=== PATIENT | female | born 1965 | race American Indian/Alaskan Native ===

== ENCOUNTER 2017-01-25 11:22 | Emergency (ER) | payer OTHER, SELFPAY ==
[2017-01-25 12:44] LABS: Mean Corpuscular HGB Conc 29 % (30-34); Platelet Count 328 K/mm3 (140-440); Red Blood Count 3.48 M/mm3 (3.65-5.03)
[2017-01-25 12:47] LABS: Hematocrit 23.4 % (30.3-42.9); Hemoglobin 6.7 gm/dl (10.1-14.3); Mean Corpuscular Hemoglobin 19 pg (28-32); Mean Corpuscular Volume 67 fl (79-97); Red Cell Distribution Width 30.7 % (13.2-15.2)
[2017-01-25 13:03] LABS: Anion Gap 19 mmol/L; BUN/Creatinine Ratio 25.55; Blood Urea Nitrogen 23 mg/dL (7-17); Carbon Dioxide 24 mmol/L (22-30); Chloride 103.2 mmol/L (98-107); Glucose 131 mg/dL (65-100); Potassium 3.5 mmol/L (3.6-5.0); Sodium 143 mmol/L (137-145)
[2017-01-25 13:41] LABS: Anisocytosis 3+; Basophils % (Manual) 0 % (0.0-1.8); Blastocytes % (Manual) 0 %; Eosinophils % (Manual) 0 % (0.0-4.3)
[2017-01-25 13:43] LABS: Hypochromasia 1+; Microcytosis 1+; Polychromasia Few
[2017-01-25 13:44] LABS: Diff Status Complete; Poikilocytosis 1+
[2017-01-25] MEDS ORDERED: NACL 0.9% 500 ML 500 ML IV ONE (14:45)
--- NOTE | 2017-01-25 14:49 | Emergency Department Report ---
ED Shortness of Breath HPI - General Chief Complaint: Dyspnea/Respdistress Stated Complaint: PASSED OUT Time Seen by Provider: 01/25/17 14:37 Source: patient Mode of arrival: Ambulatory Limitations: No Limitations - History of Present Illness Initial Comments: 51 years old female history of chronic vaginal bleeding presented today with shortness of breath has been going on for 4-6 months per patient's get worse last night. Patient had history of fibroid but she stated that her vaginal bleeding is stopped about 6 months ago so she is not actively bleeding now. Denied any abdominal pain, hematochezia or hematuria. Patient stated that she is lightheaded. No chest pain. MD Complaint: shortness of breath -: Gradual, month(s) - Related Data Home Medications Medication Instructions Recorded Confirmed Last Taken Hydrochlorothiazide [HCTZ] 25 mg PO QDAY 01/25/17 01/25/17 Unknown Lisinopril [Zestril TAB] 20 mg PO QDAY 01/25/17 01/25/17 Unknown Previous Rx's Medication Instructions Recorded Last Taken Type Docusate Sodium [Colace] 100 mg PO BID #60 capsule 01/25/17 Unknown Rx Ferrous Sulfate [Feosol 325 MG tab] 325 mg PO QDAY #30 tablet 01/25/17 Unknown Rx Allergies Allergy/AdvReac Type Severity Reaction Status Date / Time No Known Allergies Allergy Unverified 12/11/13 14:24 ED Review of Systems ROS: Stated complaint: PASSED OUT Other details as noted in HPI Comment: All other systems reviewed and negative Constitutional: denies: chills, fever Respiratory: shortness of breath, SOB with exertion. denies: orthopnea Cardiovascular: palpitations. denies: chest pain Gastrointestinal: denies: abdominal pain, nausea, vomiting, diarrhea, constipation, hematemesis, melena, hematochezia Genitourinary: abnormal menses. denies: urgency, dysuria ED Past Medical Hx - Past Medical History Previous Medical History?: Yes Hx Hypertension: Yes Hx Congestive Heart Failure: No Hx Diabetes: No Hx Asthma: No Hx COPD: No Additional medical history: Uterine fibroids. Anemia - Surgical History Past Surgical History?: No - Social History Smoking Status: Never Smoker Substance Use Type: Prescribed - Medications Home Medications: Home Medications Medication Instructions Recorded Confirmed Last Taken Type Docusate Sodium [Colace] 100 mg PO BID #60 capsule 01/25/17 Unknown Rx Ferrous Sulfate [Feosol 325 MG tab] 325 mg PO QDAY #30 tablet 01/25/17 Unknown Rx Hydrochlorothiazide [HCTZ] 25 mg PO QDAY 01/25/17 01/25/17 Unknown History Lisinopril [Zestril TAB] 20 mg PO QDAY 01/25/17 01/25/17 Unknown History ED Physical Exam - General Limitations: No Limitations General appearance: alert, in no apparent distress - Head Head exam: Present: normocephalic - Eye Eye exam: Present: other (pale conjunctiva) - ENT ENT exam: Present: normal exam - Neck Neck exam: Present: normal inspection, full ROM. Absent: meningismus - Respiratory Respiratory exam: Present: normal lung sounds bilaterally. Absent: respiratory distress, wheezes, rales, rhonchi - Cardiovascular Cardiovascular Exam: Present: regular rate, normal rhythm, normal heart sounds - GI/Abdominal GI/Abdominal exam: Present: soft. Absent: tenderness, guarding, rebound, rigid - Extremities Exam Extremities exam: Present: normal inspection, normal capillary refill - Back Exam Back exam: Absent: CVA tenderness (R), CVA tenderness (L) - Neurological Exam Neurological exam: Present: alert, oriented X3, CN II-XII intact, normal gait - Skin Skin exam: Present: warm, intact, normal color ED Course Vital Signs 01/25/17 01/25/17 01/25/17 11:42 14:47 15:00 Temperature 98.6 F Pulse Rate 102 H Respiratory 18 Rate Blood Pressure 238/131 188/104 Blood Pressure [Right] O2 Sat by Pulse 99 100 97 Oximetry 01/25/17 01/25/17 01/25/17 15:05 15:30 16:59 Temperature 98.2 F Pulse Rate 91 H Respiratory 18 18 Rate Blood Pressure 176/95 188/112 Blood Pressure [Right] O2 Sat by Pulse 96 99 Oximetry 01/25/17 01/25/17 17:40 18:20 Temperature 98.0 F 97.6 F Pulse Rate 18 L 84 Respiratory 18 18 Rate Blood Pressure Blood Pressure 204/115 201/106 [Right] O2 Sat by Pulse 100 99 Oximetry - Reevaluation(s) Reevaluation #1: 01/25/17 19:04 Patient received 1 units of PRBC she stated that she is feeling much better her hemoglobin now is 7.9. Patient will be discharged home on iron sulfate pill and advised to follow-up with her live in housekeeper nanny. ED Medical Decision Making - Lab Data Result diagrams: 01/25/17 18:27 01/25/17 12:31 Critical care attestation.: If time is entered above; I have spent that time in minutes in the direct care of this critically ill patient, excluding procedure time. ED Disposition Clinical Impression: Shortness of breath, Anemia due to blood loss Disposition: TO HOME OR SELFCARE Is pt being admited?: No Condition: Stable Instructions: Iron Deficiency Anemia (ED) Prescriptions: Docusate Sodium [Colace] 100 mg PO BID #60 capsule Ferrous Sulfate [Feosol 325 MG tab] 325 mg PO QDAY #30 tablet Referrals: PRIMARY CARE, [Primary Care Provider] - 3-5 Days
[2017-01-25] MEDS ORDERED: CATAPRES PO ONE ×2 (15:53→19:42)
[2017-01-25] MEDS ORDERED: MOTRIN PO ONE (18:45)
[2017-01-25 18:59] LABS: Mean Corpuscular HGB Conc 30 % (30-34); Platelet Count 333 K/mm3 (140-440); Red Blood Count 3.93 M/mm3 (3.65-5.03)
[2017-01-25 19:00] LABS: Hematocrit 26.9 % (30.3-42.9); Hemoglobin 7.9 gm/dl (10.1-14.3); Mean Corpuscular Hemoglobin 20 pg (28-32); Mean Corpuscular Volume 68 fl (79-97); Red Cell Distribution Width 30.7 % (13.2-15.2)
[2017-01-25 19:44] VITALS: BP 180/110
[2017-01-25 19:54] LABS: Anisocytosis 3+; Basophils % (Manual) 0 % (0.0-1.8); Blastocytes % (Manual) 0 %; Hypochromasia 2+; Microcytosis 1+; Poikilocytosis 1+
[2017-01-25 19:55] LABS: Diff Status Complete; Large Platelets Few; Platelet Estimate Consistent w Auto; Polychromasia Few
--- NOTE | 2017-01-27 07:21 | XRay Report ---
CHEST 2 VIEWS INDICATION: Shortness of breath. COMPARISON: 05/04/2014 FINDINGS: PA and lateral chest radiographs again demonstrate mild to moderate cardiomegaly, slight bronchovascular prominence centrally and minimal fluid or thickening along the fissures. No significant pleural effusions or CHF. Mild multilevel thoracic spondylosis. CONCLUSION: Cardiomegaly again noted without acute chest process, as described. Thank you for the opportunity to participate in this patient's care.
== END 2017-01-25 19:55 | disposition home or self-care (01) ==
LOC: ED 11:22
DX: R06.02 Shortness of breath (principal); D50.0 Iron deficiency anemia secondary to blood loss (chronic); I10 Essential (primary) hypertension
CPT/HCPCS: 36415; 71020; 80048; 84484; 85007; 85025; 86850; 86900; 86901; 86920; 93005; 93010; 96360; 96361; 99284; J7040; P9016

== ENCOUNTER 2021-04-18 18:47 | Inpatient (IN) | payer SELFPAY ==
--- NOTE | 2021-04-18 22:29 | Emergency Department Report ---
HPI - General Chief Complaint: Dyspnea/Respdistress Time Seen by Provider: 04/18/21 22:19 - HPI HPI: 55-year-old -[place] female presents to the emergency department with a complaint of a 2 to 3-week history of shortness of breath that worsens with exertion, and "I have a bunch of fluid on me." The patient complains of fluid retention to the legs and abdomen. She had a history of hypertension. She follows with [facility]. She denies any fever, chest pain, nausea, vomiting or diaphoresis. She has not taken anything for symptoms prior to presentation. She denies any tobacco or illicit drug use. No recent travel or sick contacts at home. ED Past Medical Hx - Past Medical History Previous Medical History?: Yes Hx Hypertension: Yes Hx Congestive Heart Failure: No Hx Diabetes: No Hx Asthma: No Hx COPD: No Additional medical history: Uterine fibroids. Anemia - Surgical History Past Surgical History?: No - Social History Smoking Status: Never Smoker Substance Use Type: Prescribed - Medications Home Medications: Home Medications Medication Instructions Recorded Confirmed Last Taken Type Docusate Sodium [Colace] 100 mg PO BID #60 capsule 01/25/17 Unknown Rx Ferrous Sulfate [Feosol 325 MG tab] 325 mg PO QDAY #30 tablet 01/25/17 Unknown Rx hydroCHLOROthiazide [HCTZ] 25 mg PO QDAY 01/25/17 01/25/17 Unknown History lisinopriL [Zestril TAB] 20 mg PO QDAY 01/25/17 01/25/17 Unknown History ED Review of Systems ROS: Stated complaint: FLUID ON ME Other details as noted in HPI Comment: All other systems reviewed and negative Constitutional: denies: chills, fever Eyes: denies: eye pain, vision change ENT: denies: ear pain, throat pain Respiratory: cough, shortness of breath, SOB with exertion Cardiovascular: edema. denies: chest pain Gastrointestinal: denies: abdominal pain, vomiting Genitourinary: denies: dysuria, discharge Musculoskeletal: denies: back pain, arthralgia Skin: denies: rash, lesions Neurological: denies: headache, numbness Physical Exam - Physical Exam Vital Signs: Vital Signs 04/18/21 18:54 Temperature 98.0 F Pulse Rate 139 H Respiratory 18 Rate Blood Pressure 131/82 O2 Sat by Pulse 100 Oximetry Physical Exam: GENERAL: The patient is well-developed well-nourished. HENT: Normocephalic. Atraumatic. Patient has moist mucous membranes. EYES: Extraocular motions are intact. NECK: Supple. Trachea is midline. CHEST/LUNGS: Coarse breath sounds at the chest. There is some tachypnea but no accessory muscle use. HEART/CARDIOVASCULAR: Irregular rhythm. There is moderate tachycardia. ABDOMEN: Abdomen is soft, nontender. Patient has normal bowel sounds. Morbidly obese habitus. SKIN: Skin is warm and dry. 1-2+ pitting edema along the bilateral lower extremities up into the thigh, and nonpitting edema to the lower abdomen. NEURO: The patient is awake, alert, and oriented. The patient is cooperative. The patient has no focal neurologic deficits. Normal speech. MUSCULOSKELETAL: There is no tenderness or deformity. There is no limitation range of motion. ED Course Vital Signs 04/18/21 18:54 Temperature 98.0 F Pulse Rate 139 H Respiratory 18 Rate Blood Pressure 131/82 O2 Sat by Pulse 100 Oximetry - Consultations Consultation #1: 04/19/21 00:35 I spoke with the programming instructor scientific publications editor, Dr Carlos, who listened to the case presentation and recommended amiodarone drip without bolus to try and provide rate control for the A. fib with RVR given the patient's potential diagnosis of CHF and her current blood pressure. They will consult on the patient. ED Medical Decision Making - Lab Data Result diagrams: 04/18/21 22:26 04/18/21 22:26 Lab Results 04/18/21 04/18/21 04/18/21 Range/Units 22:26 22:26 22:26 WBC 7.5 (4.5-11.0) K/mm3 RBC 3.69 (3.65-5.03) M/mm3 Hgb 7.4 L (10.1-14.3) gm/dl Hct 26.9 L (30.3-42.9) % MCV 73 L (79-97) fl MCH 20 L (28-32) pg MCHC 28 L (30-34) % RDW 22.4 H (13.2-15.2) % Plt Count 350 (140-440) K/mm3 Lymph % (Auto) 23.4 (13.4-35.0) % Wharton % (Auto) 13.2 H (0.0-7.3) % Eos % (Auto) 0.3 (0.0-4.3) % Baso % (Auto) 0.7 (0.0-1.8) % Lymph # (Auto) 1.8 (1.2-5.4) K/mm3 Wharton # (Auto) 1.0 H (0.0-0.8) K/mm3 Eos # (Auto) 0.0 (0.0-0.4) K/mm3 Baso # (Auto) 0.1 (0.0-0.1) K/mm3 Seg Neutrophils % 62.4 (40.0-70.0) % Seg Neutrophils # 4.7 (1.8-7.7) K/mm3 PT 16.6 H (12.2-14.9) Sec. INR 1.21 H (0.87-1.13) APTT 30.3 (24.2-36.6) Sec. Sodium 142 (137-145) mmol/L Potassium 3.6 (3.6-5.0) mmol/L Chloride 102.2 (98-107) mmol/L Carbon Dioxide 24 (22-30) mmol/L Anion Gap 19 mmol/L BUN 40 H (7-17) mg/dL Creatinine 1.4 H (0.6-1.2) mg/dL Estimated GFR 48 ml/min BUN/Creatinine Ratio 29 % Glucose 190 H (65-100) mg/dL Calcium 9.0 (8.4-10.2) mg/dL Total Bilirubin 3.90 H (0.1-1.2) mg/dL AST 35 (5-40) units/L ALT 47 (7-56) units/L Alkaline Phosphatase 134 H (35-129) units/L Troponin T 0.043 H (0.00-0.029) ng/mL NT-Pro-B Natriuret Pep 2124 H (0-900) pg/mL Total Protein 8.0 (6.3-8.2) g/dL Albumin 3.4 L (3.9-5) g/dL Albumin/Globulin Ratio 0.7 % TSH (0.270-4.200) mlU/mL 04/18/21 Range/Units 22:26 WBC (4.5-11.0) K/mm3 RBC (3.65-5.03) M/mm3 Hgb (10.1-14.3) gm/dl Hct (30.3-42.9) % MCV (79-97) fl MCH (28-32) pg MCHC (30-34) % RDW (13.2-15.2) % Plt Count (140-440) K/mm3 Lymph % (Auto) (13.4-35.0) % Wharton % (Auto) (0.0-7.3) % Eos % (Auto) (0.0-4.3) % Baso % (Auto) (0.0-1.8) % Lymph # (Auto) (1.2-5.4) K/mm3 Wharton # (Auto) (0.0-0.8) K/mm3 Eos # (Auto) (0.0-0.4) K/mm3 Baso # (Auto) (0.0-0.1) K/mm3 Seg Neutrophils % (40.0-70.0) % Seg Neutrophils # (1.8-7.7) K/mm3 PT (12.2-14.9) Sec. INR (0.87-1.13) APTT (24.2-36.6) Sec. Sodium (137-145) mmol/L Potassium (3.6-5.0) mmol/L Chloride (98-107) mmol/L Carbon Dioxide (22-30) mmol/L Anion Gap mmol/L BUN (7-17) mg/dL Creatinine (0.6-1.2) mg/dL Estimated GFR ml/min BUN/Creatinine Ratio % Glucose (65-100) mg/dL Calcium (8.4-10.2) mg/dL Total Bilirubin (0.1-1.2) mg/dL AST (5-40) units/L ALT (7-56) units/L Alkaline Phosphatase (35-129) units/L Troponin T (0.00-0.029) ng/mL NT-Pro-B Natriuret Pep (0-900) pg/mL Total Protein (6.3-8.2) g/dL Albumin (3.9-5) g/dL Albumin/Globulin Ratio % TSH 2.420 (0.270-4.200) mlU/mL - EKG Data -: EKG Interpreted by Me EKG shows normal: axis (Left axis deviation), intervals (Prolonged QTC), QRS complexes, ST-T waves Rate: tachycardia (145 bpm) - EKG Data When compared to previous EKG there are: changes noted (Previous EKG showed sinus tachycardia on 01/25/2017) Interpretation: other (Atrial fibrillation with RVR at 145 bpm, left axis deviation, prolonged QTC. No ST elevation OH) - Radiology Data Radiology results: image reviewed interpreted by me: Chest x-ray shows moderate to severe cardiomegaly and pulmonary vascular congestion. No obvious pneumonia. No pneumothorax. No widened mediastinum. - Medical Decision Making This patient presents to the emergency department with a 2 to 3-week history of shortness of breath that worsens with exertion, as well as swelling to the bilateral lower extremities and up into the abdomen. On examination the patient has moderate tachycardia and heart sounds are irregular. EKG confirms atrial fibrillation with RVR that appears to be new onset. No morphology consistent with ST elevation myocardial infarction. Chest x-ray shows moderate to severe cardiomegaly with some pulmonary vascular congestion possibly showing early CHF. Patient's labs are remarkable for hemoglobin of 7.4, acute kidney injury with a GFR of 48, proBNP of about 2200, elevated troponin level of 0.04. Patient does have a history of anemia but previously required transfusions due to uterine fibroids and dysfunctional uterine bleeding. The patient says that she no longer has these issues, and denies any current bleeding from anywhere. Patient was given a dose of Cardizem without much improvement in the tachycardia and no cardioversion. At this point the patient's blood pressure was about 100/60. Cardiology was contacted and consulted and recommended amiodarone drip without bolus. Patient has been started on a heparin drip. Patient will be admitted to the hospital for further evaluation and treatment and was accepted for admission by the hospitalist, Dr. Cruz. Critical Care Time: Yes Critical care time in (mins) excluding proc time.: 35 Critical care attestation.: If time is entered above; I have spent that time in minutes in the direct care of this critically ill patient, excluding procedure time. Critical care time spent on this patient in doing her initial evaluation, multiple reevaluations, ordering and interpretation of labs and imaging, discussion with cardiology, IV Cardizem and then amiodarone drip for rate control of A. fib with RVR, IV heparin for new onset A. fib, and multiple discussions with the patient. Critical Care Time: 35 minutes ED Disposition Clinical Impression: Atrial fibrillation with RVR, New onset atrial fibrillation, ARNULFO (acute kidney injury), Elevated troponin CHF (congestive heart failure) Qualifiers: Heart failure type: unspecified Heart failure chronicity: acute Qualified Code(s): I50.9 - Heart failure, unspecified Anemia Qualifiers: Anemia type: unspecified type Qualified Code(s): D64.9 - Anemia, unspecified Disposition: 09 ADMITTED INPATIENT Is pt being admited?: Yes Condition: Serious Referrals: PRIMARY CAREMD [Primary Care Provider] - 3-5 Days Time of Disposition: 23:57
--- NOTE | 2021-04-18 22:59 | XRay Report ---
XR chest routine 2V INDICATION / CLINICAL INFORMATION: SOB. COMPARISON: None available. FINDINGS: SUPPORT DEVICES: None. HEART /PULMONARY VASCULATURE: Cardiac silhouette is enlarged. Pulmonary vasculature is upper normal. LUNGS / PLEURA: No significant pulmonary or pleural abnormality. No pneumothorax. ADDITIONAL FINDINGS: No significant additional findings. IMPRESSION: Cardiomegaly with borderline pulmonary vasculature congestion, may reflect mild CHF. Signer Name: Caden Torres MD Signed: 04/18/2021 10:54 PM Workstation Name: [id number]
[2021-04-18 23:10] LABS: Basophils # (Auto) 0.1 K/mm3 (0.0-0.1); Basophils % (Auto) 0.7 % (0.0-1.8); Eosinophils % (Auto) 0.3 % (0.0-4.3); Lymphocytes # (Auto) 1.8 K/mm3 (1.2-5.4); Lymphocytes % (Auto) 23.4 % (13.4-35.0); Mean Corpuscular HGB Conc 28 % (30-34); Mean Corpuscular Volume 73 fl (79-97); Monocytes % (Auto) 13.2 % (0.0-7.3); Platelet Count 350 K/mm3 (140-440); Red Blood Count 3.69 M/mm3 (3.65-5.03)
[2021-04-18] MEDS ORDERED: dilTIAZem 25 MG/5 ML INJ IV ONE (23:17)
[2021-04-18 23:21] LABS: INR 1.21 (0.87-1.13)
[2021-04-18 23:22] LABS: Partial Thromboplastin Time 30.3 Sec. (24.2-36.6)
[2021-04-18 23:25] LABS: Albumin 3.4 g/dL (3.9-5)
[2021-04-18 23:28] LABS: Hematocrit 26.9 % (30.3-42.9); Hemoglobin 7.4 gm/dl (10.1-14.3); Red Cell Distribution Width 22.4 % (13.2-15.2)
[2021-04-18] MEDS ORDERED: AMIODARONE 900 MG in DEXTROSE 5% IN WATER 482 ML IV SCH (23:45)
[2021-04-18] MEDS ORDERED: HEPARIN 10,000 UNITS/10 ML VIAL IV ONE (23:51)
[2021-04-19] MEDS: HEPARIN/ 0.45% NACL DRIP 25,000 UNIT/500 ML BAG IV SCH (00:19)
[2021-04-19] MEDS ORDERED: ACETAMINOPHEN 325 MG TAB PO ONE (00:22)
[2021-04-19 01:08] LABS: Chol/HDL Ratio 3.04 %
[2021-04-19] MEDS ORDERED: MORPHINE 2 MG/1 ML INJ IV PRN ×2 (01:13)
[2021-04-19] MEDS ORDERED: MORPHINE 4 MG/1 ML INJ IV PRN (01:13)
[2021-04-19] MEDS ORDERED: MAGNESIUM HYDROXIDE (MOM) ORAL LIQD UDC PO PRN (01:13)
[2021-04-19] MEDS ORDERED: NITROGLYCERIN 0.4 MG TAB SUBL SL PRN (01:13)
--- NOTE | 2021-04-19 01:24 | History and Physical Report ---
History of Present Illness Date of examination: 04/19/21 Date of admission: 04/19/2021 Chief complaint: Shortness of breath Lower extremity swelling History of present illness: 55-year-old -Iranian female with known history of hypertension presenting to the emergency room today complaining of shortness of breath and progressive swelling of her lower extremities which has been ongoing for the past 2 to 3 weeks. Shortness of breath is said to be worse on exertion. She denies any chest pain, no nausea or vomiting and no abdominal pain. Patient denies any fever or chills, denies any headache or dizziness denies any diaphoresis. Patient denies any sick contacts and no recent travel. Denies any contact with anyone with COVID-19. Patient has been fully vaccinated against COVID-19. Upon arrival in the emergency room today patient was in A. fib with RVR. Work-up in the emergency room, significant findings were that of a hemoglobin of 7.4, elevated BUN of 40 and creatinine of 1.4, troponin of 0.043, BNP of 2124. Chest x-ray reveals cardiomegaly with borderline pulmonary vascular congestion which may reflect mild CHF. Fax Machine Repairer on-call was consulted by the ER physician and the recommendation was to place patient on amiodarone drip and heparin. Past History Past Medical History: anemia, hypertension, other (Uterine fibroids) Past Surgical History: No surgical history Social history: no significant social history Family history: no significant family history Medications and Allergies Allergies Allergy/AdvReac Type Severity Reaction Status Date / Time No Known Allergies Allergy Unverified 12/11/13 14:24 Home Medications Medication Instructions Recorded Confirmed Last Taken Type hydroCHLOROthiazide [HCTZ] 25 mg PO QDAY 01/25/17 04/19/21 Unknown History lisinopriL [Zestril TAB] 20 mg PO QDAY 01/25/17 04/19/21 Unknown History Active Meds: Active Medications Amiodarone HCl 900 mg/ (Dextrose) 500 mls @ 33.333 mls/hr IV DIRECT SHELLY; Protocol Last Admin: 04/19/21 00:34 Dose: 1 mg/min, 33.333 mls/hr Documented by: Heparin Sodium/Sodium Chloride (Heparin/ 0.45% Nacl-25,000 Unit/500 Ml) 25,000 unit in 500 mls @ 30 mls/hr IV TITR SHELLY; Protocol Last Admin: 04/19/21 00:19 Dose: 1,500 units/hr, 30 mls/hr Documented by: Review of Systems Constitutional: no fever, no chills Ears, nose, mouth and throat: no nasal congestion, no sore throat Cardiovascular: palpitations, edema, dyspnea on exertion, no chest pain Respiratory: cough, shortness of breath, no wheezing Gastrointestinal: no abdominal pain, no nausea, no vomiting, no diarrhea Genitourinary Female: no pelvic pain, no flank pain, no dysuria, no hematuria Musculoskeletal: no neck pain, no low back pain Integumentary: no rash, no pruritis Neurological: no headaches, no confusion Psychiatric: no anxiety, no depression Endocrine: no polyphagia, no polydipsia, no polyuria, no nocturia Exam - Constitutional Vitals: Temp Pulse Resp BP Pulse Ox 98.0 F 120 H 16 104/77 99 04/18/21 18:54 04/18/21 23:45 04/18/21 23:45 04/18/21 23:45 04/18/21 23:45 General appearance: Present: no acute distress, well-nourished, other (Mild pallor) - EENT Eyes: Present: PERRL, EOM intact. Absent: scleral icterus ENT: hearing intact, clear oral mucosa, dentition normal - Neck Neck: Present: supple, normal ROM - Respiratory Respiratory effort: normal Respiratory: bilateral: CTA - Cardiovascular Rhythm: irregularly irregular Heart Sounds: Present: S1 & S2. Absent: gallop, systolic murmur, diastolic mur mur, rub, click - Extremities Extremities: no ischemia, pulses intact, pulses symmetrical, normal temperature, normal color, Full ROM Extremity abnormal: edema (2-3+ bilateral lower extremity pitting edema) Peripheral Pulses: within normal limits - Abdominal General gastrointestinal: Present: soft, non-tender, non-distended, normal bowel sounds. Absent: mass - Integumentary Integumentary: Present: clear, warm, dry, normal turgor. Absent: rash - Musculoskeletal Musculoskeletal: strength equal bilaterally - Psychiatric Psychiatric: appropriate mood/affect, intact judgment & insight, memory intact, cooperative - Neurologic Neurologic: CNII-XII intact, no focal deficits, moves all extremities HEART Score - HEART Score Troponin: Troponin T 0.043 ng/mL (0.00-0.029) H 04/18/21 22:26 Results - Labs CBC & Chem 7: 04/18/21 22:26 04/18/21 22:26 Labs: Abnormal lab results 04/18/21 04/18/21 04/18/21 Range/Units 22:26 22:26 22:26 Hgb 7.4 L (10.1-14.3) gm/dl Hct 26.9 L (30.3-42.9) % MCV 73 L (79-97) fl MCH 20 L (28-32) pg MCHC 28 L (30-34) % RDW 22.4 H (13.2-15.2) % Tate % (Auto) 13.2 H (0.0-7.3) % Tate # (Auto) 1.0 H (0.0-0.8) K/mm3 PT 16.6 H (12.2-14.9) Sec. INR 1.21 H (0.87-1.13) BUN 40 H (7-17) mg/dL Creatinine 1.4 H (0.6-1.2) mg/dL Glucose 190 H (65-100) mg/dL Total Bilirubin 3.90 H (0.1-1.2) mg/dL Alkaline Phosphatase 134 H (35-129) units/L Troponin T 0.043 H (0.00-0.029) ng/mL NT-Pro-B Natriuret Pep 2124 H (0-900) pg/mL Albumin 3.4 L (3.9-5) g/dL LDL Cholesterol Direct 42 L (50-130) mg/dL HDL Cholesterol 25 L (40-59) mg/dL Assessment and Plan - Patient Problems (1) Atrial fibrillation with RVR Current Visit: Yes Status: Acute Plan to address problem: Patient admitted and placed in the intermediate care unit. We will monitor EKG. We will schedule patient for echocardiogram. Consult placed to cardiology for further evaluation and recommendations. Meanwhile patient will be continued on IV amiodarone and heparin drip for ant icoagulation. (2) CHF (congestive heart failure) Current Visit: Yes Status: Acute Qualifiers: Heart failure type: unspecified Heart failure chronicity: acute Qualified Code(s): I50.9 - Heart failure, unspecified Plan to address problem: Patient admitted and placed on diuretics. We will monitor inputs and outputs and also monitor daily weights. Will await echocardiogram. Echocardiogram done in 2013 showed an ejection fraction of 45 to 50%. (3) ARNULFO (acute kidney injury) Current Visit: Yes Status: Acute Plan to address problem: Consult placed to nephrology for evaluation and recommendations. (4) Anemia Current Visit: Yes Status: Acute Qualifiers: Anemia type: unspecified type Qualified Code(s): D64.9 - Anemia, unspecified Plan to address problem: This appears chronic. We will monitor CBC. (5) Elevated troponin Current Visit: Yes Status: Acute Plan to address problem: Patient has denied any chest pain. Will trend cardiac enzymes. Will await further recommendations from cardiology. (6) HTN (hypertension), benign Current Visit: No Status: Acute Plan to address problem: We will resume routine home medications once reconciled. Monitor vital signs closely. (7) DVT prophylaxis Current Visit: No Status: Acute Plan to address problem: Patient currently on anticoagulation with heparin. (8) Full code status Current Visit: Yes Status: Acute Plan to address problem: Patient is full code.
[2021-04-19] MEDS: FUROSEMIDE 40 MG/4 ML INJ IV SCH ×2 (06:19→19:35)
[2021-04-19] MEDS ORDERED: HEPARIN 10,000 UNITS/10 ML VIAL IV PRN (07:13)
[2021-04-19 12:49] LABS: Mean Corpuscular HGB Conc 27 % (30-34); Mean Corpuscular Volume 74 fl (79-97); Platelet Count 317 K/mm3 (140-440); Red Blood Count 3.76 M/mm3 (3.65-5.03)
[2021-04-19 12:52] LABS: Hematocrit 27.8 % (30.3-42.9); Hemoglobin 7.6 gm/dl (10.1-14.3); Red Cell Distribution Width 22.2 % (13.2-15.2)
[2021-04-19 13:33] LABS: Calcium 9.1 mg/dL (8.4-10.2)
[2021-04-19] MEDS: ACETAMINOPHEN 325 MG TAB PO PRN (13:59)
--- NOTE | 2021-04-19 14:52 | Consultation ---
History of Present Illness Consult date: 04/19/21 Consult reason: atrial fibrillation History of present illness: The patient is a 55-year-old woman with severe obesity and hypertension who receives her usual care at [facility]. She presents to the hospital with 3 weeks of shortness of breath and edema. On her presentation here, ECG showed atrial fibrillation with a rapid ventricular rate in the 130s. Cardiology consultation was requested for further assessment. Patient has no prior history of atrial fibrillation, states that she has no prior cardiac history and has never been to see a retort feeder ground bone. Her last visit to her primary care doctors at [facility] was 6 months ago. She has never been given a history of congestive heart failure left ventricular dysfunction. Echocardiogram done at the bedside in the emergency room shows a severe four- chamber dilated cardiomyopathy with left ventricular ejection fraction less than 15 to 20%. There are moderate regurgitant lesions of both mitral and tricuspid valves. Past History Past Medical History: anemia, hypertension, other (Uterine fibroids) Past Surgical History: No surgical history Social history: no significant social history Family history: no significant family history Medications and Allergies Allergies Allergy/AdvReac Type Severity Reaction Status Date / Time No Known Allergies Allergy Unverified 12/11/13 14:24 Home Medications Medication Instructions Recorded Confirmed Last Taken Type hydroCHLOROthiazide [HCTZ] 25 mg PO QDAY 01/25/17 04/19/21 Unknown History lisinopriL [Zestril TAB] 20 mg PO QDAY 01/25/17 04/19/21 Unknown History Active Meds: Active Medications Acetaminophen (Acetaminophen 325 Mg Tab) 650 mg PO Q6H PRN PRN Reason: Pain MILD(1-3)/Fever >100.5/WALTER Last Admin: 04/19/21 13:59 Dose: 650 mg Documented by: Furosemide (Furosemide 40 Mg/4 Ml Inj) 40 mg IV BID@0600,1800 SHELLY Last Admin: 04/19/21 06:19 Dose: 40 mg Documented by: Heparin Sodium (Porcine) (Heparin 10,000 Units/10 Ml Vial) 4,500 unit 40 unit/kg (4500 unit) IV Q6H PRN PRN Reason: Anti-Xa Assay < 0.1 units/ml Amiodarone HCl 900 mg/ (Dextrose) 500 mls @ 33.333 mls/hr IV DIRECT SHELLY; Protocol Last Titration: 04/19/21 07:39 Dose: 0.5 mg/min, 16.66 mls/hr Documented by: Heparin Sodium/Sodium Chloride (Heparin/ 0.45% Nacl-25,000 Unit/500 Ml) 25,000 unit in 500 mls @ 30 mls/hr IV TITR SHELLY; Protocol Last Admin: 04/19/21 00:19 Dose: 1,500 units/hr, 30 mls/hr Documented by: Magnesium Hydroxide (Magnesium Hydroxide (Mom) Oral Liqd Udc) 30 ml PO Q4H PRN PRN Reason: Constipation Morphine Sulfate (Morphine 2 Mg/1 Ml Inj) 2 mg IV Q4H PRN PRN Reason: Pain, Moderate (4-6) Morphine Sulfate (Morphine 4 Mg/1 Ml Inj) 4 mg IV Q4H PRN PRN Reason: Pain , Severe (7-10) Morphine Sulfate (Morphine 2 Mg/1 Ml Inj) 2 mg IV Q5MIN PRN PRN Reason: Chest Pain unrelieved by NTG Nitroglycerin (Nitroglycerin 0.4 Mg Tab Subl) 0.4 mg SL .Q5MIN PRN PRN Reason: Chest Pain Sodium Chloride (Sodium Chloride 0.9% 10 Ml Flush Syringe) 10 ml IV BID [facility] Last Admin: 04/19/21 09:52 Dose: 10 ml Documented by: Sodium Chloride (Sodium Chloride 0.9% 10 Ml Flush Syringe) 10 ml IV PRN PRN PRN Reason: LINE FLUSH Review of Systems Cardiovascular: orthopnea, palpitations, rapid/irregular heart beat, edema, shortness of breath, no chest pain, no syncope, no lightheadedness Physical Examination Vital Signs Temp Pulse Resp BP Pulse Ox 98.0 F 139 H 18 131/82 100 04/18/21 18:54 04/18/21 18:54 04/18/21 18:54 04/18/21 18:54 04/18/21 18:54 General appearance: mild distress HEENT: Positive: PERRL Neck: Positive: neck supple Cardiac: Positive: irregularly irregular Lungs: Positive: Decreased Breath Sounds Neuro: Positive: Grossly Intact Abdomen: Positive: Soft Female genitourinary: deferred Skin: Positive: Clear Extremities: Present: +1 Edema Results 04/19/21 12:02 04/19/21 12:02 Cardiac Enzymes 04/18/21 Range/Units 22:26 AST 35 (5-40) units/L Coagulation 04/18/21 Range/Units 22:26 PT 16.6 H (12.2-14.9) Sec. INR 1.21 H (0.87-1.13) APTT 30.3 (24.2-36.6) Sec. Lipids 04/18/21 Range/Units 22:26 Triglycerides 76 (2-149) mg/dL Cholesterol 76 (50-199) mg/dL HDL Cholesterol 25 L (40-59) mg/dL Cholesterol/HDL Ratio 3.04 % CBC 04/18/21 04/19/21 Range/Units 22:26 12:02 WBC 7.5 12.6 H (4.5-11.0) K/mm3 RBC 3.69 3.76 (3.65-5.03) M/mm3 Hgb 7.4 L 7.6 L (10.1-14.3) gm/dl Hct 26.9 L 27.8 L (30.3-42.9) % Plt Count 350 317 (140-440) K/mm3 Lymph # (Auto) 1.8 (1.2-5.4) K/mm3 [place] # (Auto) 1.0 H (0.0-0.8) K/mm3 Eos # (Auto) 0.0 (0.0-0.4) K/mm3 Baso # (Auto) 0.1 (0.0-0.1) K/mm3 Comprehensive Metabolic Panel 04/18/21 04/19/21 Range/Units 22:26 12:02 Sodium 142 139 (137-145) mmol/L Potassium 3.6 3.8 (3.6-5.0) mmol/L Chloride 102.2 98.8 (98-107) mmol/L Carbon Dioxide 24 20 L (22-30) mmol/L BUN 40 H 46 H (7-17) mg/dL Creatinine 1.4 H 1.6 H (0.6-1.2) mg/dL Glucose 190 H 117 H (65-100) mg/dL Calcium 9.0 9.1 (8.4-10.2) mg/dL AST 35 (5-40) units/L ALT 47 (7-56) units/L Alkaline Phosphatase 134 H (35-129) units/L Total Protein 8.0 (6.3-8.2) g/dL Albumin 3.4 L (3.9-5) g/dL EKG interpretations - Telemetry EKG Rhythm: Atrial Fibrillation Assessment and Plan - Patient Problems (1) CHF (congestive heart failure) Current Visit: Yes Status: Acute Qualifiers: Heart failure type: unspecified Heart failure chronicity: acute Qualified Code(s): I50.9 - Heart failure, unspecified Plan to address problem: Patient presents with 3 weeks of shortness of breath and edema. Clinical evidence of heart failure. Echocardiogram shows a severe four-chamber dilated cardiomyopathy, of uncertain chronicity. Patient reports no prior cardiac history, follows up routinely at [facility]. We will start guideline directed medical therapy including optimal diuretics. Further evaluation and management will depend on clinical course. (2) Atrial fibrillation with RVR Current Visit: Yes Status: Acute Plan to address problem: Atrial fibrillation of undetermined chronicity. Atrial fibrillation is present in the setting of a four-chamber dilated cardiomyopathy. In addition to guidel ine directed medical therapy, patient will be placed on rate control therapy, and if tolerated will be a candidate for long-term oral anticoagulation. It will be noted that she has a history of chronic anemia which may attenuate her candidacy for long-term oral anticoagulation.
--- NOTE | 2021-04-19 17:32 | Event Note ---
Date: 04/19/21 The patient was seen and evaluated, and she was found to be hemodynamically stable. The patient was diagnosed with acute systolic heart failure (new diagnosis) via a bedside TTE. The patient will continue medical management with IV diuresis. Cardiology was consulted; appreciate recommendations.
[2021-04-20] MEDS ORDERED: AMIODARONE 900 MG in DEXTROSE 5% IN WATER 482 ML IV SCH (01:40)
[2021-04-20 05:20] LABS: Basophils # (Auto) 0.1 K/mm3 (0.0-0.1); Basophils % (Auto) 0.6 % (0.0-1.8); Eosinophils # (Auto) 0.1 K/mm3 (0.0-0.4); Eosinophils % (Auto) 0.4 % (0.0-4.3); Mean Corpuscular HGB Conc 28 % (30-34); Mean Corpuscular Volume 73 fl (79-97); Monocytes # (Auto) 1.9 K/mm3 (0.0-0.8); Monocytes % (Auto) 15.6 % (0.0-7.3); Platelet Count 307 K/mm3 (140-440); Red Blood Count 3.44 M/mm3 (3.65-5.03)
[2021-04-20 05:24] LABS: Hematocrit 25.1 % (30.3-42.9); Hemoglobin 7.1 gm/dl (10.1-14.3); Red Cell Distribution Width 21.8 % (13.2-15.2)
[2021-04-20] MEDS: FUROSEMIDE 40 MG/4 ML INJ IV SCH ×2 (06:14→17:34)
[2021-04-20] MEDS: HEPARIN/ 0.45% NACL DRIP 25,000 UNIT/500 ML BAG IV SCH (10:47)
--- NOTE | 2021-04-20 12:58 | Progress Note ---
Assessment and Plan Acute systolic heart failure, uncertain chronicity Echocardiogram shows a severe four-chamber dilated cardiomyopathy, EF 15-20% Atrial fibrillation of undetermined chronicity on IV amiodarone on IV heparin gtt normal TSH of 2.4 Hypertension Obesity Anemia Subjective Date of service: 04/20/21 Objective Vital Signs Temp Pulse Resp BP BP Pulse Ox 04/20/21 12:20 131/103 98 04/20/21 12:10 131/103 99 04/20/21 12:00 98.6 F 130 H 131/103 98 04/20/21 11:50 114/81 99 04/20/21 11:40 126 H 18 114/81 99 04/20/21 11:30 120 H 22 125/66 04/20/21 11:20 131 H 15 125/66 04/20/21 11:10 128 H 25 H 125/66 04/20/21 11:00 132 H 17 125/66 04/20/21 10:50 136 H 15 125/66 04/20/21 10:40 142 H 15 125/66 04/20/21 10:30 123 H 21 125/66 98 04/20/21 10:20 114 H 22 125/66 98 04/20/21 10:10 132 H 26 H 125/66 99 04/20/21 10:00 117 H 29 H 125/66 98 04/20/21 09:50 112 H 25 H 106/68 95 04/20/21 09:40 118 H 23 106/68 95 04/20/21 09:30 113 H 23 106/68 96 04/20/21 09:20 98.1 F 121 H 25 H 106/68 99 04/20/21 09:10 114 H 23 106/68 96 04/20/21 09:00 108 H 25 H 106/68 98 04/20/21 08:50 116 H 24 111/76 99 04/20/21 08:40 112 H 25 H 111/76 98 04/20/21 08:30 115 H 22 111/76 99 04/20/21 08:20 113 H 23 121/82 98 04/20/21 08:10 126 H 14 111/76 100 04/20/21 08:00 122 H 24 111/76 98 04/20/21 07:50 117 H 21 121/82 98 04/20/21 07:40 112 H 22 121/82 94 04/20/21 07:30 119 H 19 121/82 95 04/20/21 07:20 112 H 19 121/82 92 04/20/21 07:10 114 H 19 121/82 97 04/20/21 07:00 110 H 24 121/82 95 04/20/21 06:50 126 H 23 104/81 94 04/20/21 06:40 111 H 22 104/81 94 04/20/21 06:30 113 H 24 104/81 96 04/20/21 06:20 117 H 19 104/81 97 04/20/21 06:10 114 H 24 104/81 94 04/20/21 06:00 109 H 24 109/48 97 04/20/21 05:50 109 H 23 109/48 96 04/20/21 05:40 120 H 17 109/48 99 04/20/21 05:30 117 H 21 109/48 99 04/20/21 05:20 113 H 19 109/48 97 04/20/21 05:10 123 H 19 109/48 98 04/20/21 05:00 115 H 23 106/69 97 04/20/21 04:50 116 H 18 106/69 99 04/20/21 04:40 124 H 19 106/69 93 04/20/21 04:30 111 H 25 H 106/69 95 04/20/21 04:20 119 H 25 H 106/69 93 04/20/21 04:16 118 H 25 H 106/69 95 04/20/21 04:00 99 04/20/21 03:41 98 F 04/20/21 02:00 112 H 99 04/20/21 01:40 98.1 F 04/20/21 01:01 116 H 21 118/71 98 04/20/21 00:01 114 H 20 127/70 98 04/19/21 23:01 109 H 28 H 127/79 95 04/19/21 22:09 108 H 28 H 138/81 94 04/19/21 22:01 119 H 27 H 138/81 97 04/19/21 21:01 116 H 24 119/78 95 04/19/21 20:01 117 H 20 118/66 100 04/19/21 19:35 97.8 F 111 H 24 104/74 98 04/19/21 17:01 112 H 19 109/79 04/19/21 16:01 111 H 26 H 105/69 04/19/21 15:01 112 H 31 H 118/79 04/19/21 14:59 18 04/19/21 14:01 115 H 22 118/84 04/19/21 13:01 115 H 24 109/79 - Physical Examination HEENT: Positive: PERRL Neck: Positive: neck supple Neuro: Positive: Grossly Intact Abdomen: Positive: Soft Skin: Positive: Clear Extremities: Present: +1 Edema - Labs and Meds CBC 04/20/21 Range/Units 04:47 WBC 12.1 H (4.5-11.0) K/mm3 RBC 3.44 L (3.65-5.03) M/mm3 Hgb 7.1 L (10.1-14.3) gm/dl Hct 25.1 L (30.3-42.9) % Plt Count 307 (140-440) K/mm3 Lymph # (Auto) 3.0 (1.2-5.4) K/mm3 [place] # (Auto) 1.9 H (0.0-0.8) K/mm3 Eos # (Auto) 0.1 (0.0-0.4) K/mm3 Baso # (Auto) 0.1 (0.0-0.1) K/mm3 Comprehensive Metabolic Panel 04/19/21 04/20/21 Range/Units 12:02 04:47 Sodium 139 133 L (137-145) mmol/L Potassium 3.8 4.0 (3.6-5.0) mmol/L Chloride 98.8 94.0 L (98-107) mmol/L Carbon Dioxide 20 L 27 D (22-30) mmol/L BUN 46 H 50 H (7-17) mg/dL Creatinine 1.6 H 1.8 H (0.6-1.2) mg/dL Glucose 117 H 101 H (65-100) mg/dL Calcium 9.1 9.0 (8.4-10.2) mg/dL
--- NOTE | 2021-04-20 14:31 | Electrocardiograph Report ---
[facility] Test Date: 2021-04-18 Test Time: 19:05:55 Pat Name: MAYRA PERALTA Department: Room: A260 Gender: F Range Aide: DENISSE : 1965 Requested By: JENS GOMEZ Order Number: [id number] Reading MD: Cira Wilson Measurements Intervals [place] Rate: 141 P: [place]: QRS: -9 QRSD: 97 T: 134 QT: 315 QTc: 485 Interpretive Statements Pacemaker spikes or artifacts ATRIAL FIBRILLATION WITH RAPID V-RATE Anterolateral infarct, old Low voltage QRS No previous ECG available for comparison Electronically Signed On 04-20-2021 14:31:45 EST by Cira Wilson
--- NOTE | 2021-04-20 14:33 | Electrocardiograph Report ---
[facility] Test Date: 2021-04-18 Test Time: 23:07:48 Pat Name: MAYRA PERALTA Department: Room: A260 Gender: F Charge Poster: EZE Hutchinson : 1965 Requested By: IAN CADET Order Number: [id number] Reading MD: Cira Wilson Measurements Intervals [place] Rate: 145 P: [place]: QRS: -13 QRSD: 95 T: 124 QT: 327 QTc: 508 Interpretive Statements Rapid atrial fibrillation Nonspecific T abnormalities, lateral leads No previous ECG available for comparison Electronically Signed On 04-20-2021 14:33:00 EST by Cira Wilson
[2021-04-20] MEDS: METOPROLOL TARTRATE 50 MG TAB PO SCH ×2 (14:35→22:26)
[2021-04-20] MEDS ORDERED: DIGOXIN 0.5 MG/2 ML INJ IV SCH (15:00)
--- NOTE | 2021-04-20 15:09 | Progress Note ---
<OMARAllenJASMEETMelida - Last Filed: 04/20/21 15:06> Assessment and Plan Assessment and plan: This is a 55-year-old female with HTN, anemia, CHF, left ventricular dysfunction and uterine fibroids admitted with A. fib with RVR and acute on chronic CHF exacerbation Neuro: NAD -Avoid delirium -Reorientation as needed -Maintain sleep-wake cycle -As needed analgesics Cardio: A. fib with RVR, acute on chronic CHF exacerbation, elevated troponin, h/o HTN -Cardiology consulted, appreciate recommendations -Amiodarone and heparin drip -Echocardiogram shows four-chamber dilated cardiomyopathy, EF 15 to 20% -Blood pressure monitor per protocol -CCM consulted, appreciate recommendations -IV Lasix twice daily -proBNP on admit 2123 -TSH 2.4 -Aspirin, digoxin, isosorbide/hydralazine, metoprolol, spironolactone -As needed nitroglycerin Pulmonary: NAD -Supplemental oxygen as needed -Pulmonary hygiene -SPO2 monitoring GI: MO -Cardiac diet -24-hour positive 236 mL -BR: Senokot -PPI : Acute on possibly chronic CKD, hyponatremia, hypochloremia, hyperphosphatemia, hypermagnesemia -Presented with a BUN/creatinine of 1.4/40 -Renally dose medications -Avoid nephrotoxic medications -Consider nephrology consult if worsens -Strict intake and output -Daily weights -Trend BMP Endo: NAD -Avoid hypoglycemia ID: Leukocytosis -Monitor fever and WBC curve Heme: h/o anemia -Trend CBC -Transfuse for hemoglobin less than 7 -Heparin drip -SCDs to bilateral lower extremities while in bed The high probability of a clinically significant, sudden or life threatening deterioration of the [cardio] system(s) required my full and direct attention, intervention and personal management. The aggregate critical care time was [60] minutes. This time is in addition to time spent performing reported procedures but includes the following: [x] Data Review and interpretation [x] Patient assessment and monitoring of vital signs [x] Documentation [x] Medication orders and management Disposition Plan: imcu Total Time Spent with Patient (Minutes): 60 History Interval history: This is a 55-year-old -[place] female with HTN, anemia, CHF, left ventricular dysfunction and uterine fibroids who presented to emergency department on 04/19 with complaints of shortness of breath worse on exertion and progressive swelling of bilateral lower extremities ongoing for the past 2 to 3 weeks. Patient states that she was vaccinated against COVID-19. Upon arrival to emergency department patient was found to be in A. fib with RVR and further work-up showed elevated BUN/creatinine and troponin and proBNP. CXR showed cardiomegaly with borderline pulmonary vascular congestion. Cardiology was consulted in the emergency department and patient was placed on amiodarone and heparin drip. Patient was transferred to ICU and CCM was consulted. 04/20: Patient states that she feels much better today. She was complaining of the urge to void and was straight cathed overnight. This morning bladder scan revealed urine volume of 400 and Arteaga catheter was placed with 600 mL of urine output. Patient remains at diuretic therapy. Hospitalist Physical - Constitutional Vitals: Temp Pulse Resp BP Pulse Ox 98.6 F 113 H 24 138/81 98 04/20/21 12:00 04/20/21 15:00 04/20/21 15:00 04/20/21 15:00 04/20/21 15:00 General appearance: Present: no acute distress - EENT Eyes: Present: PERRL, EOM intact ENT: hearing intact, clear oral mucosa, dentition normal - Neck Neck: Present: supple, normal ROM - Respiratory Respiratory effort: normal Respiratory: bilateral: diminished - Cardiovascular Rhythm: irregularly irregular Heart Sounds: Present: S1 & S2. Absent: systolic murmur, diastolic murmur - Extremities Extremities: no ischemia, pulses intact, pulses symmetrical, No edema, normal temperature, normal color, Full ROM Peripheral Pulses: within normal limits - Abdominal General gastrointestinal: soft, non-tender, non-distended, normal bowel sounds - Integumentary Integumentary: Present: warm, dry - Psychiatric Psychiatric: cooperative - Neurologic Neurologic: CNII-XII intact, no focal deficits, moves all extremities - Allied Health Allied health notes reviewed: nursing, RT, social work HEART Score - HEART Score Troponin: Troponin T 0.043 ng/mL (0.00-0.029) H 04/18/21 22:26 Results - Labs CBC & Chem 7: 04/20/21 04:47 04/20/21 04:47 Labs: Laboratory Last Values WBC 12.1 K/mm3 (4.5-11.0) H 04/20/21 04:47 RBC 3.44 M/mm3 (3.65-5.03) L 04/20/21 04:47 Hgb 7.1 gm/dl (10.1-14.3) L 04/20/21 04:47 Hct 25.1 % (30.3-42.9) L 04/20/21 04:47 MCV 73 fl (79-97) L 04/20/21 04:47 MCH 21 pg (28-32) L 04/20/21 04:47 MCHC 28 % (30-34) L 04/20/21 04:47 RDW 21.8 % (13.2-15.2) H 04/20/21 04:47 Plt Count 307 K/mm3 (140-440) 04/20/21 04:47 Lymph % (Auto) 25.0 % (13.4-35.0) 04/20/21 04:47 [place] % (Auto) 15.6 % (0.0-7.3) H 04/20/21 04:47 Eos % (Auto) 0.4 % (0.0-4.3) 04/20/21 04:47 Baso % (Auto) 0.6 % (0.0-1.8) 04/20/21 04:47 Lymph # (Auto) 3.0 K/mm3 (1.2-5.4) 04/20/21 04:47 [place] # (Auto) 1.9 K/mm3 (0.0-0.8) H 04/20/21 04:47 Eos # (Auto) 0.1 K/mm3 (0.0-0.4) 04/20/21 04:47 Baso # (Auto) 0.1 K/mm3 (0.0-0.1) 04/20/21 04:47 Seg Neutrophils % 58.4 % (40.0-70.0) 04/20/21 04:47 Seg Neutrophils # 7.1 K/mm3 (1.8-7.7) 04/20/21 04:47 PT 16.6 Sec. (12.2-14.9) H 04/18/21 22:26 INR 1.21 (0.87-1.13) H 04/18/21 22:26 APTT 30.3 Sec. (24.2-36.6) 04/18/21 22:26 Heparin Anti-Xa Level 0.39 U.I./ml (0.3-0.7) 04/20/21 09:18 Sodium 133 mmol/L (137-145) L 04/20/21 04:47 Potassium 4.0 mmol/L (3.6-5.0) 04/20/21 04:47 Chloride 94.0 mmol/L (98-107) L 04/20/21 04:47 Carbon Dioxide 27 mmol/L (22-30) D 04/20/21 04:47 Anion Gap 16 mmol/L 04/20/21 04:47 BUN 50 mg/dL (7-17) H 04/20/21 04:47 Creatinine 1.8 mg/dL (0.6-1.2) H 04/20/21 04:47 Estimated GFR 36 ml/min 04/20/21 04:47 BUN/Creatinine Ratio 28 % 04/20/21 04:47 Glucose 101 mg/dL (65-100) H 04/20/21 04:47 Calcium 9.0 mg/dL (8.4-10.2) 04/20/21 04:47 Phosphorus 4.70 mg/dL (2.5-4.5) H 04/20/21 04:47 Magnesium 2.50 mg/dL (1.7-2.3) H 04/20/21 04:47 Total Bilirubin 3.90 mg/dL (0.1-1.2) H 04/18/21 22:26 AST 35 units/L (5-40) 04/18/21 22:26 ALT 47 units/L (7-56) 04/18/21 22:26 Alkaline Phosphatase 134 units/L (35-129) H 04/18/21 22:26 Troponin T 0.043 ng/mL (0.00-0.029) H 04/18/21 22:26 NT-Pro-B Natriuret Pep 2124 pg/mL (0-900) H 04/18/21 22:26 Total Protein 8.0 g/dL (6.3-8.2) 04/18/21 22:26 Albumin 3.4 g/dL (3.9-5) L 04/18/21 22:26 Albumin/Globulin Ratio 0.7 % 04/18/21 22:26 Triglycerides 76 mg/dL (2-149) 04/18/21 22:26 Cholesterol 76 mg/dL (50-199) 04/18/21 22:26 LDL Cholesterol Direct 42 mg/dL (50-130) L 04/18/21 22:26 HDL Cholesterol 25 mg/dL (40-59) L 04/18/21 22:26 Cholesterol/HDL Ratio 3.04 % 04/18/21 22:26 TSH 2.420 mlU/mL (0.270-4.200) 04/18/21 22:26 Arteaga/IV: Voiding Method External Female Catheter Active Medications - Current Medications Current Medications: Generic Name Dose Route Start Last Admin Trade Name Freq PRN Reason Stop Dose Admin Acetaminophen 650 mg 04/19/21 01:13 04/19/21 13:59 Acetaminophen 325 Mg Tab PO 650 mg Q6H PRN Administration Pain MILD(1-3)/Fever >100.5/WALTER Aspirin 81 mg 04/20/21 15:00 Aspirin Ec 81 Mg Tab PO QDAY [facility] Digoxin 0.125 mg 04/21/21 17:00 Digoxin 0.125 Mg Tab PO DAILY@1700 [facility] Digoxin 0.25 mg 04/20/21 15:00 Digoxin 0.5 Mg/2 Ml Inj IV 04/20/21 21:01 Q6H [facility] Famotidine 10 mg 04/20/21 22:00 Famotidine 10 Mg Tab PO BID [facility] Furosemide 40 mg 04/19/21 06:00 04/20/21 06:14 Furosemide 40 Mg/4 Ml Inj IV 40 mg BID@0600,1800 [facility] Administration Heparin Sodium (Porcine) 4,500 unit 04/19/21 07:13 Heparin 10,000 Units/10 Ml Vial 40 unit/kg (4500 unit) IV Q6H PRN Anti-Xa Assay < 0.1 units/ml Heparin Sodium/Sodium Chloride 25,000 unit in 500 mls @ 30 mls/hr 04/18/21 23:45 04/20/21 10:47 Heparin/ 0.45% Nacl-25,000 Unit/500 Ml IV 1,500 units/hr TITR SHELLY 30 mls/hr Administration Protocol 1,500 UNITS/HR Amiodarone HCl 900 mg/ 500 mls @ 33.333 mls/hr 04/20/21 01:40 04/20/21 10:48 Dextrose IV 0.5 mg/min DIRECT SHELLY 16.667 mls/hr Administration Protocol 1 MG/MIN Isosorbide Dinitrate/Hydralazine 1 each 04/20/21 15:00 Isosorb Dinit/Hydralazine 20-37.5mg Tab PO Q8HR SHE[facility] Magnesium Hydroxide 30 ml 04/19/21 01:13 Magnesium Hydroxide (Mom) Oral Liqd Udc PO Q4H PRN Constipation Metoprolol Tartrate 50 mg 04/20/21 14:00 Metoprolol Tartrate 50 Mg Tab PO BID SHE[facility] Metoprolol Tartrate 2.5 mg 04/20/21 13:52 Metoprolol Tartrate 5 Mg/5 Ml Inj IV Q6HR PRN HR>130 Morphine Sulfate 2 mg 04/19/21 01:13 Morphine 2 Mg/1 Ml Inj IV Q5MIN PRN Chest Pain unrelieved by NTG Nitroglycerin 0.4 mg 04/19/21 01:13 Nitroglycerin 0.4 Mg Tab Subl SL .Q5MIN PRN Chest Pain Oxycodone HCl 5 mg 04/20/21 13:24 Oxycodone 5 Mg Tab PO Q6H PRN Pain, Moderate (4-6) Senna 17.2 mg 04/20/21 22:00 Sennosides 8.6 Mg Tab PO QHS SHELLY Sodium Chloride 10 ml 04/19/21 10:00 04/19/21 22:08 Sodium Chloride 0.9% 10 Ml Flush Syringe IV 10 ml BID [facility] Administration Sodium Chloride 10 ml 04/19/21 01:13 Sodium Chloride 0.9% 10 Ml Flush Syringe IV PRN PRN LINE FLUSH Spironolactone 25 mg 04/21/21 10:00 Spironolactone 25 Mg Tab PO QDAY [facility] Nutrition/Malnutrition Assess - Dietary Evaluation Nutrition/Malnutrition Findings: Nutrition Notes Start: 04/19/21 09:36 Freq: Status: Active Protocol: Document 04/19/21 09:36 MELISSA (Rec: 04/19/21 09:40 MELISSA [id number]) Nutrition Notes Need for Assessment generated from: MD Order,Education Initial or Follow up Brief Note Current Diagnosis Acute Kidney Injury, Hypertension,Heart Failure Other Pertinent Diagnosis afib with RVR, anemia Current Diet Cardiac Pertinent Medications Lasix, Amiodarone gtt, Heparin gtt Height 5 ft 2 in Weight 113.398 kg [place] Body Weight (kg) 50.00 BMI 45.7 Weight Status Morbidly Obese Subjective/Other Information RD consulted for diet education. Pt in ED at this time. BP been controlled since admission (<140/90). Pt admitted with c/o SOB and progressive LE edema. Burn Absent Trauma Absent Minimum of two criteria No Is patient on ventilator? No Is Patient Ambulatory and/or Out of Bed No REE-([facility]-confined to bed) 2033.408 Kcal/Kg value to use for calculation 14 Approximate Energy Requirements Using 1588 kcal/Kg Calculation Used for Recommendations Kcal/kg Additional Notes Pro needs 0.8-1g/kg adjBW: 65- 82g/day Fluid needs 1ml/kcal Nutrition Intervention Follow-Up By: 04/23/21 Additional Comments F/U: diet education needs ( Heart healthy), intakes, transfer to medical floor <JENS GOMEZ - Last Filed: 04/20/21 18:20> Assessment and Plan Assessment and plan: I agree with the aforementioned note listed above. Hospitalist Physical - Constitutional Vitals: Temp Pulse Resp BP Pulse Ox 98.6 F 105 H 21 101/50 98 04/20/21 12:00 04/20/21 17:30 04/20/21 17:30 04/20/21 17:30 04/20/21 17:30 HEART Score - HEART Score Troponin: Troponin T 0.043 ng/mL (0.00-0.029) H 04/18/21 22:26 Results - Labs CBC & Chem 7: 04/20/21 04:47 04/20/21 04:47 Labs: Laboratory Last Values WBC 12.1 K/mm3 (4.5-11.0) H 04/20/21 04:47 RBC 3.44 M/mm3 (3.65-5.03) L 04/20/21 04:47 Hgb 7.1 gm/dl (10.1-14.3) L 04/20/21 04:47 Hct 25.1 % (30.3-42.9) L 04/20/21 04:47 MCV 73 fl (79-97) L 04/20/21 04:47 MCH 21 pg (28-32) L 04/20/21 04:47 MCHC 28 % (30-34) L 04/20/21 04:47 RDW 21.8 % (13.2-15.2) H 04/20/21 04:47 Plt Count 307 K/mm3 (140-440) 04/20/21 04:47 Lymph % (Auto) 25.0 % (13.4-35.0) 04/20/21 04:47 Hamilton % (Auto) 15.6 % (0.0-7.3) H 04/20/21 04:47 Eos % (Auto) 0.4 % (0.0-4.3) 04/20/21 04:47 Baso % (Auto) 0.6 % (0.0-1.8) 04/20/21 04:47 Lymph # (Auto) 3.0 K/mm3 (1.2-5.4) 04/20/21 04:47 [place] # (Auto) 1.9 K/mm3 (0.0-0.8) H 04/20/21 04:47 Eos # (Auto) 0.1 K/mm3 (0.0-0.4) 04/20/21 04:47 Baso # (Auto) 0.1 K/mm3 (0.0-0.1) 04/20/21 04:47 Seg Neutrophils % 58.4 % (40.0-70.0) 04/20/21 04:47 Seg Neutrophils # 7.1 K/mm3 (1.8-7.7) 04/20/21 04:47 PT 16.6 Sec. (12.2-14.9) H 04/18/21 22:26 INR 1.21 (0.87-1.13) H 04/18/21 22:26 APTT 30.3 Sec. (24.2-36.6) 04/18/21 22:26 Heparin Anti-Xa Level 0.39 U.I./ml (0.3-0.7) 04/20/21 15:26 Sodium 133 mmol/L (137-145) L 04/20/21 04:47 Potassium 4.0 mmol/L (3.6-5.0) 04/20/21 04:47 Chloride 94.0 mmol/L (98-107) L 04/20/21 04:47 Carbon Dioxide 27 mmol/L (22-30) D 04/20/21 04:47 Anion Gap 16 mmol/L 04/20/21 04:47 BUN 50 mg/dL (7-17) H 04/20/21 04:47 Creatinine 1.8 mg/dL (0.6-1.2) H 04/20/21 04:47 Estimated GFR 36 ml/min 04/20/21 04:47 BUN/Creatinine Ratio 28 % 04/20/21 04:47 Glucose 101 mg/dL (65-100) H 04/20/21 04:47 Calcium 9.0 mg/dL (8.4-10.2) 04/20/21 04:47 Phosphorus 4.70 mg/dL (2.5-4.5) H 04/20/21 04:47 Magnesium 2.50 mg/dL (1.7-2.3) H 04/20/21 04:47 Total Bilirubin 3.90 mg/dL (0.1-1.2) H 04/18/21 22:26 AST 35 units/L (5-40) 04/18/21 22:26 ALT 47 units/L (7-56) 04/18/21 22:26 Alkaline Phosphatase 134 units/L (35-129) H 04/18/21 22:26 Troponin T 0.043 ng/mL (0.00-0.029) H 04/18/21 22:26 NT-Pro-B Natriuret Pep 2124 pg/mL (0-900) H 04/18/21 22:26 Total Protein 8.0 g/dL (6.3-8.2) 04/18/21 22:26 Albumin 3.4 g/dL (3.9-5) L 04/18/21 22:26 Albumin/Globulin Ratio 0.7 % 04/18/21 22:26 Triglycerides 76 mg/dL (2-149) 04/18/21 22:26 Cholesterol 76 mg/dL (50-199) 04/18/21 22:26 LDL Cholesterol Direct 42 mg/dL (50-130) L 04/18/21 22:26 HDL Cholesterol 25 mg/dL (40-59) L 04/18/21 22:26 Cholesterol/HDL Ratio 3.04 % 04/18/21 22:26 TSH 2.420 mlU/mL (0.270-4.200) 04/18/21 22:26 Arteaga/IV: Voiding Method External Female Catheter Active Medications - Current Medications Current Medications: Generic Name Dose Route Start Last Admin Trade Name Freq PRN Reason Stop Dose Admin Acetaminophen 650 mg 04/19/21 01:13 04/20/21 15:35 Acetaminophen 325 Mg Tab PO 650 mg Q6H PRN Administration Pain MILD(1-3)/Fever >100.5/WALTER Aspirin 81 mg 04/20/21 15:00 04/20/21 15:58 Aspirin Ec 81 Mg Tab PO 81 mg QDAY [facility] Administration Digoxin 0.125 mg 04/21/21 17:00 Digoxin 0.125 Mg Tab PO DAILY@1700 [facility] Digoxin 0.25 mg 04/20/21 15:00 04/20/21 15:57 Digoxin 0.5 Mg/2 Ml Inj IV 04/20/21 21:01 0.25 mg Q6H [facility] Administration Famotidine 10 mg 04/20/21 22:00 Famotidine 10 Mg Tab PO BID [facility] Furosemide 40 mg 04/19/21 06:00 04/20/21 17:34 Furosemide 40 Mg/4 Ml Inj IV 40 mg BID@0600,1800 [facility] Administration Heparin Sodium (Porcine) 4,500 unit 04/19/21 07:13 Heparin 10,000 Units/10 Ml Vial 40 unit/kg (4500 unit) IV Q6H PRN Anti-Xa Assay < 0.1 units/ml Heparin Sodium/Sodium Chloride 25,000 unit in 500 mls @ 30 mls/hr 04/18/21 23:45 04/20/21 10:47 Heparin/ 0.45% Nacl-25,000 Unit/500 Ml IV 1,500 units/hr TITR SHELLY 30 mls/hr Administration Protocol 1,500 UNITS/HR Amiodarone HCl 900 mg/ 500 mls @ 33.333 mls/hr 04/20/21 01:40 04/20/21 10:48 Dextrose IV 0.5 mg/min DIRECT SHELLY 16.667 mls/hr Administration Protocol 1 MG/MIN Isosorbide Dinitrate/Hydralazine 1 each 04/20/21 15:00 04/20/21 15:58 Isosorb Dinit/Hydralazine 20-37.5mg Tab PO 1 each Q8HR SHE[facility] Administration Magnesium Hydroxide 30 ml 04/19/21 01:13 Magnesium Hydroxide (Mom) Oral Liqd Udc PO Q4H PRN Constipation Metoprolol Tartrate 50 mg 04/20/21 14:00 04/20/21 14:35 Metoprolol Tartrate 50 Mg Tab PO 50 mg BID SHELLY Administration Metoprolol Tartrate 2.5 mg 04/20/21 13:52 Metoprolol Tartrate 5 Mg/5 Ml Inj IV Q6HR PRN HR>130 Morphine Sulfate 2 mg 04/19/21 01:13 Morphine 2 Mg/1 Ml Inj IV Q5MIN PRN Chest Pain unrelieved by NTG Nitroglycerin 0.4 mg 04/19/21 01:13 Nitroglycerin 0.4 Mg Tab Subl SL .Q5MIN PRN Chest Pain Ondansetron HCl 4 mg 04/20/21 17:00 04/20/21 17:34 Ondansetron 4 Mg/2 Ml Inj IV 4 mg Q8HR PRN Administration Nausea And Vomiting Oxycodone HCl 5 mg 04/20/21 13:24 Oxycodone 5 Mg Tab PO Q6H PRN Pain, Moderate (4-6) Senna 17.2 mg 04/20/21 22:00 Sennosides 8.6 Mg Tab PO QHS SHELLY Simethicone 80 mg 04/20/21 18:00 04/20/21 17:44 Simethicone 80 Mg Chew Tab PO 80 mg Q6H PRN Administration Gas pain Sodium Chloride 10 ml 04/19/21 10:00 04/19/21 22:08 Sodium Chloride 0.9% 10 Ml Flush Syringe IV 10 ml BID SHELLY Administration Sodium Chloride 10 ml 04/19/21 01:13 Sodium Chloride 0.9% 10 Ml Flush Syringe IV PRN PRN LINE FLUSH Spironolactone 25 mg 04/21/21 10:00 Spironolactone 25 Mg Tab PO QDAY [facility] Nutrition/Malnutrition Assess - Dietary Evaluation Nutrition/Malnutrition Findings: Nutrition Notes Start: 04/19/21 09:36 Freq: Status: Active Protocol: Document 04/19/21 09:36 MELISSA (Rec: 04/19/21 09:40 MELISSA [id number]) Nutrition Notes Need for Assessment generated from: MD Order,Education Initial or Follow up Brief Note Current Diagnosis Acute Kidney Injury, Hypertension,Heart Failure Other Pertinent Diagnosis afib with RVR, anemia Current Diet Cardiac Pertinent Medications Lasix, Amiodarone gtt, Heparin gtt Height 5 ft 2 in Weight 113.398 kg [place] Body Weight (kg) 50.00 BMI 45.7 Weight Status Morbidly Obese Subjective/Other Information RD consulted for diet education. Pt in ED at this time. BP been controlled since admission (<140/90). Pt admitted with c/o SOB and progressive LE edema. Burn Absent Trauma Absent Minimum of two criteria No Is patient on ventilator? No Is Patient Ambulatory and/or Out of Bed No REE-([facility]-confined to bed) 2033.408 Kcal/Kg value to use for calculation 14 Approximate Energy Requirements Using 1588 kcal/Kg Calculation Used for Recommendations Kcal/kg Additional Notes Pro needs 0.8-1g/kg adjBW: 65- 82g/day Fluid needs 1ml/kcal Nutrition Intervention Follow-Up By: 04/23/21 Additional Comments F/U: diet education needs ( Heart healthy), intakes, transfer to medical floor
[2021-04-20] MEDS: ACETAMINOPHEN 325 MG TAB PO PRN (15:35)
[2021-04-20] MEDS: DIGOXIN 0.5 MG/2 ML INJ IV SCH ×2 (15:57→20:48)
[2021-04-20] MEDS: ASPIRIN EC 81 MG TAB PO SCH (15:58)
[2021-04-20] MEDS: ISOSORB DINIT/HYDRALAZINE 20-37.5MG TAB PO SCH ×2 (15:58→22:27)
[2021-04-20] MEDS ORDERED: ONDANSETRON 4 MG/2 ML INJ IV PRN (17:00)
[2021-04-20] MEDS: SIMETHICONE 80 MG CHEW TAB PO PRN (17:44)
[2021-04-20] MEDS ORDERED: hydrALAZINE 10 MG TAB PO SCH (22:00)
[2021-04-20] MEDS: FAMOTIDINE 10 MG TAB PO SCH (22:26)
[2021-04-20] MEDS: SENNOSIDES 8.6 MG TAB PO SCH (22:26)
[2021-04-21] MEDS: HEPARIN/ 0.45% NACL DRIP 25,000 UNIT/500 ML BAG IV SCH (04:20)
[2021-04-21 04:58] LABS: Mean Corpuscular HGB Conc 27 % (30-34); Mean Corpuscular Volume 72 fl (79-97); Platelet Count 288 K/mm3 (140-440)
[2021-04-21] MEDS: ISOSORB DINIT/HYDRALAZINE 20-37.5MG TAB PO SCH ×3 (05:03→21:31)
[2021-04-21] MEDS: FUROSEMIDE 40 MG/4 ML INJ IV SCH (05:04)
[2021-04-21 05:05] LABS: Hematocrit 25.2 % (30.3-42.9); Hemoglobin 6.9 gm/dl (10.1-14.3); Red Cell Distribution Width 22.1 % (13.2-15.2)
[2021-04-21 05:14] LABS: Calcium 8.4 mg/dL (8.4-10.2)
[2021-04-21] MEDS: ASPIRIN EC 81 MG TAB PO SCH (09:35)
[2021-04-21] MEDS: SPIRONOLACTONE 25 MG TAB PO SCH (09:35)
[2021-04-21] MEDS: METOPROLOL TARTRATE 50 MG TAB PO SCH ×3 (09:36→21:50)
[2021-04-21] MEDS: FAMOTIDINE 10 MG TAB PO SCH ×2 (09:43→21:23)
[2021-04-21] MEDS: oxyCODONE 5 MG TAB PO PRN ×2 (10:21→21:30)
[2021-04-21] MEDS ORDERED: SODIUM CHLORIDE 0.9% 500 ML 500 ML IV SCH (11:29)
--- NOTE | 2021-04-21 11:30 | Consultation ---
History of Present Illness - Reason for Consult Consult date: 04/21/21 afib, uncontrolled and systolic heart failure - History of Present Illness 55 y/o female admitted to ICU for rate control for afib. Has underlying cardiomyopathy and systolic heart failure with EF of 15%. Was on amio drip but this was stopped secondary to BP issues. Loaded with dig yesterday by cards but unfortunately still not controlled but hemodynamically stable. Awaiting cardiology recs for today. Past History Past Medical History: anemia, hypertension, other (Uterine fibroids) Past Surgical History: No surgical history Social history: no significant social history Family history: no significant family history Medications and Allergies Allergies Allergy/AdvReac Type Severity Reaction Status Date / Time No Known Allergies Allergy Unverified 12/11/13 14:24 Home Medications Medication Instructions Recorded Confirmed Last Taken Type hydroCHLOROthiazide [HCTZ] 25 mg PO QDAY 01/25/17 04/19/21 Unknown History lisinopriL [Zestril TAB] 20 mg PO QDAY 01/25/17 04/19/21 Unknown History Active Meds: Active Medications Acetaminophen (Acetaminophen 325 Mg Tab) 650 mg PO Q6H PRN PRN Reason: Pain MILD(1-3)/Fever >100.5/WALTER Last Admin: 04/20/21 15:35 Dose: 650 mg Documented by: Aspirin (Aspirin Ec 81 Mg Tab) 81 mg PO QDAY [facility] Last Admin: 04/21/21 09:35 Dose: 81 mg Documented by: Digoxin (Digoxin 0.125 Mg Tab) 0.125 mg PO DAILY@1700 SHE[facility] Famotidine (Famotidine 10 Mg Tab) 10 mg PO BID [facility] Last Admin: 04/21/21 09:43 Dose: 10 mg Documented by: Heparin Sodium (Porcine) (Heparin 10,000 Units/10 Ml Vial) 4,500 unit 40 unit/kg (4500 unit) IV Q6H PRN PRN Reason: Anti-Xa Assay < 0.1 units/ml Heparin Sodium/Sodium Chloride (Heparin/ 0.45% Nacl-25,000 Unit/500 Ml) 25,000 unit in 500 mls @ 30 mls/hr IV [facility]; Protocol Last Admin: 04/21/21 04:20 Dose: 1,500 units/hr, 30 mls/hr Documented by: Amiodarone HCl 900 mg/ (Dextrose) 500 mls @ 33.333 mls/hr IV DIRECT SHELLY; Protocol Last Infusion: 04/21/21 04:50 Dose: 0 mg/min, 0 mls/hr Documented by: Isosorbide Dinitrate/Hydralazine (Isosorb Dinit/Hydralazine 20-37.5mg Tab) 1 each PO Q8HR [facility] Last Admin: 04/21/21 05:03 Dose: 1 each Documented by: Magnesium Hydroxide (Magnesium Hydroxide (Mom) Oral Liqd Udc) 30 ml PO Q4H PRN PRN Reason: Constipation Metoprolol Tartrate (Metoprolol Tartrate 50 Mg Tab) 50 mg PO BID [facility] Last Admin: 04/21/21 09:36 Dose: 50 mg Documented by: Metoprolol Tartrate (Metoprolol Tartrate 5 Mg/5 Ml Inj) 2.5 mg IV Q6HR PRN PRN Reason: HR>130 Morphine Sulfate (Morphine 2 Mg/1 Ml Inj) 2 mg IV Q5MIN PRN PRN Reason: Chest Pain unrelieved by NTG Nitroglycerin (Nitroglycerin 0.4 Mg Tab Subl) 0.4 mg SL .Q5MIN PRN PRN Reason: Chest Pain Ondansetron HCl (Ondansetron 4 Mg/2 Ml Inj) 4 mg IV Q8HR PRN PRN Reason: Nausea And Vomiting Last Admin: 04/20/21 17:34 Dose: 4 mg Documented by: Oxycodone HCl (Oxycodone 5 Mg Tab) 5 mg PO Q6H PRN PRN Reason: Pain, Moderate (4-6) Last Admin: 04/21/21 10:21 Dose: 5 mg Documented by: Senna (Sennosides 8.6 Mg Tab) 17.2 mg PO QHS [facility] Last Admin: 04/20/21 22:26 Dose: 17.2 mg Documented by: Simethicone (Simethicone 80 Mg Chew Tab) 80 mg PO Q6H PRN PRN Reason: Gas pain Last Admin: 04/20/21 17:44 Dose: 80 mg Documented by: Sodium Chloride (Sodium Chloride 0.9% 10 Ml Flush Syringe) 10 ml IV BID [facility] Last Admin: 04/21/21 09:37 Dose: 10 ml Documented by: Sodium Chloride (Sodium Chloride 0.9% 10 Ml Flush Syringe) 10 ml IV PRN PRN PRN Reason: LINE FLUSH Spironolactone (Spironolactone 25 Mg Tab) 25 mg PO QDAY [facility] Last Admin: 04/21/21 09:35 Dose: 25 mg Documented by: Review of Systems All systems: negative Exam - Constitutional Vitals: Temp Pulse Resp BP Pulse Ox 99.6 F 117 H 19 112/77 96 04/21/21 07:29 04/21/21 09:36 04/21/21 09:32 04/21/21 09:36 04/21/21 09:32 General appearance: Present: no acute distress, obese - Respiratory Respiratory: bilateral: diminished Results - Labs CBC & Chem 7: 04/21/21 04:27 04/21/21 04:27 Labs: Abnormal lab results 04/20/21 04/21/21 04/21/21 Range/Units 19:18 04:27 04:27 WBC 15.7 H (4.5-11.0) K/mm3 RBC 3.50 L (3.65-5.03) M/mm3 Hgb 6.9 L (10.1-14.3) gm/dl Hct 25.2 L (30.3-42.9) % MCV 72 L (79-97) fl MCH 20 L (28-32) pg MCHC 27 L (30-34) % RDW 22.1 H (13.2-15.2) % Sodium 136 L (137-145) mmol/L BUN 54 H (7-17) mg/dL Creatinine 1.9 H (0.6-1.2) mg/dL Magnesium 2.40 H (1.7-2.3) mg/dL Troponin T 0.040 H (0.00-0.029) ng/mL - Imaging and Cardiology Chest x-ray: image reviewed (massive cardiomegaly with pulmonary venous congestion) Assessment and Plan 55 y/o female with systolic heart failure and afib with RVR 1. Will transfer to floor 2. IMS to transfuse PRBC's 3. Will sign off once out of unit.
--- NOTE | 2021-04-21 12:21 | Progress Note ---
Assessment and Plan Acute systolic heart failure, uncertain chronicity Echocardiogram shows a severe four-chamber dilated cardiomyopathy, EF 15-20% Atrial fibrillation of undetermined chronicity rate controlled with metoprolol and digoxin normal TSH of 2.4 Hypertension Obesity Anemia Continue rate controlling agents and medical therapy for systolic heart failure. Subjective Date of service: 04/21/21 Interval history: Patient has no cardiac complaints. Resting in bed comfortably. Atrial fibrillation with a well controlled ventricular rate on telemetry. Objective Vital Signs Temp Pulse Resp BP Pulse Ox 04/21/21 09:36 117 H 112/77 04/21/21 09:35 119 H 112/77 04/21/21 09:32 124 H 19 116/72 96 04/21/21 09:00 115 H 27 H 116/72 95 04/21/21 08:30 114 H 25 H 104/59 93 04/21/21 08:00 122 H 22 112/58 94 04/21/21 07:30 119 H 25 H 99/72 93 04/21/21 07:29 99.6 F 04/21/21 07:00 119 H 18 105/67 93 04/21/21 06:30 113 H 23 101/50 93 04/21/21 06:00 118 H 22 93/53 92 04/21/21 05:30 112 H 22 116/68 92 04/21/21 05:03 108 H 112/70 04/21/21 05:00 113 H 22 112/70 93 04/21/21 04:30 116 H 24 105/63 96 04/21/21 04:00 98.7 F 114 H 23 100/56 92 04/21/21 03:30 110 H 24 93/52 92 04/21/21 03:00 108 H 23 99/62 92 04/21/21 02:30 104 H 25 H 95/54 91 04/21/21 02:00 107 H 25 H 91/54 95 04/21/21 01:30 109 H 24 90/60 92 04/21/21 01:00 108 H 24 95/53 92 04/21/21 00:30 100 H 22 94/52 96 04/21/21 00:00 98.6 F 103 H 29 H 93 04/20/21 23:30 101 H 18 93 04/20/21 23:00 103 H 21 86/42 95 12/14/21 22:30 105 H 20 100/66 98 1214/21 22:27 96 H 100/66 14/21 22:26 98 H 100/66 14/21 22:00 91 H 25 H 100/66 97 14/21 21:30 92 H 25 H 94/61 95 14/21 21:00 97.5 F L 97 H 23 94/61 97 14/21 20:48 100 H 103/61 14/21 20:30 103 H 19 103/61 98 14/21 20:00 104 H 21 103/61 95 14/ 19:30 101 H 23 110/77 98 14/21 19:00 98 H 21 110/77 94 14/ 18:20 96 H 21 85/54 94 04/20/21 18:10 98 H 14 85/54 97 04/20/21 18:00 96 H 16 85/54 97 04/20/21 17:50 99 H 19 101/50 97 04/20/21 17:40 95 H 18 101/50 96 04/20/21 17:30 105 H 21 101/50 98 04/20/21 17:20 100 H 16 101/50 98 14 17:10 105 H 22 101/50 100 04/20/21 17:00 106 H 23 101/50 99 04/20/21 16:50 101 H 20 104/46 99 04/20/21 16:40 107 H 28 H 104/46 98 14 16:30 93 H 25 H 104/46 97 04/20/21 16:20 101 H 26 H 104/46 97 04/20/21 16:10 113 H 22 104/46 99 04/20/21 16:00 98 H 18 104/46 99 14/21 15:58 105 H 138/81 14/21 15:57 105 H 138/81 14/21 15:50 116 H 20 138/81 98 14/21 15:40 112 H 29 H 138/81 98 14/21 15:30 121 H 34 H 138/81 98 14/21 15:20 111 H 16 138/81 97 14/21 15:10 115 H 12 138/81 98 1421 15:00 113 H 24 138/81 98 12/14/21 14:50 116 H 17 136/91 100 04/20/21 14:40 121 H 22 136/91 98 04/20/21 14:35 113 H 132/80 04/20/21 14:30 110 H 19 136/91 98 04/20/21 14:20 121 H 12 136/91 98 04/20/21 14:11 120 H 10 L 136/91 100 04/20/21 14:00 120 H 26 H 140/60 97 04/20/21 13:50 129 H 25 H 140/60 98 04/20/21 13:40 116 H 24 140/60 97 04/20/21 13:30 132 H 23 140/60 98 04/20/21 13:20 119 H 26 H 140/60 97 04/20/21 13:10 132 H 19 140/60 99 04/20/21 13:00 117 H 26 H 140/60 97 04/20/21 12:50 117 H 23 131/103 99 04/20/21 12:40 129 H 21 131/103 98 04/20/21 12:30 135 H 17 131/103 99 04/20/21 12:20 131/103 98 - Physical Examination General: No Apparent Distress HEENT: Positive: PERRL Neck: Positive: neck supple Cardiac: Positive: irregularly irregular Lungs: Positive: Decreased Breath Sounds Neuro: Positive: Grossly Intact Abdomen: Positive: Soft Skin: Positive: Clear Extremities: Present: +1 Edema - Labs and Meds CBC 04/21/21 Range/Units 04:27 WBC 15.7 H (4.5-11.0) K/mm3 RBC 3.50 L (3.65-5.03) M/mm3 Hgb 6.9 L (10.1-14.3) gm/dl Hct 25.2 L (30.3-42.9) % Plt Count 288 (140-440) K/mm3 Comprehensive Metabolic Panel 04/21/21 Range/Units 04:27 Sodium 136 L (137-145) mmol/L Potassium 4.0 (3.6-5.0) mmol/L Chloride 99.5 (98-107) mmol/L Carbon Dioxide 26 (22-30) mmol/L BUN 54 H (7-17) mg/dL Creatinine 1.9 H (0.6-1.2) mg/dL Glucose 97 (65-100) mg/dL Calcium 8.4 (8.4-10.2) mg/dL
--- NOTE | 2021-04-21 12:23 | Electrocardiograph Report ---
[facility] Test Date: 2021-04-20 Test Time: 17:16:00 Pat Name: MAYRA PERALTA Department: Room: A260 1 Gender: F Automated Weaver: [id number] PICKETT : 1965 Requested By: JASMEET ARCE Order Number: [id number] Reading MD: Vitor Peng Measurements Intervals [place] Rate: 100 P: CA: QRS: 11 QRSD: 106 T: 159 QT: 426 QTc: 549 Interpretive Statements Atrial fibrillation Consider anterior infarct Nonspecific T abnormalities, lateral leads Compared to ECG 04/18/2021 23:07:48 T-wave abnormality still present Electronically Signed On 04-21-2021 12:23:29 EST by Vitor Peng
--- NOTE | 2021-04-21 14:49 | Progress Note ---
Assessment and Plan Assessment and plan: This is a 55-year-old female with HTN, anemia, CHF, left ventricular dysfunction and uterine fibroids admitted with A. fib with RVR and acute on chronic CHF exacerbation Neuro: NAD -Avoid delirium -Reorientation as needed -Maintain sleep-wake cycle -As needed analgesics Cardio: A. fib with RVR, acute on chronic CHF exacerbation, elevated troponin, h/o HTN -Cardiology consulted, appreciate recommendations -Amiodarone and heparin drip -Echocardiogram shows four-chamber dilated cardiomyopathy, EF 15 to 20% -Blood pressure monitor per protocol -CCM consulted, appreciate recommendations -IV Lasix twice daily -stopped today d/t increasing Cr -proBNP on admit 2123 -TSH 2.4 -Aspirin, digoxin, isosorbide/hydralazine, metoprolol, spironolactone -As needed nitroglycerin Pulmonary: NAD -Supplemental oxygen as needed -Pulmonary hygiene -SPO2 monitoring GI: MO -Cardiac diet -24-hour positive 420 mL -BR: Senokot -PPI : Acute on possibly chronic CKD, hyponatremia, hypermagnesemia -Presented with a BUN/creatinine of 1.4/40 -Renally dose medications -Avoid nephrotoxic medications -Consider nephrology consult if worsens -Strict intake and output -Daily weights -Trend BMP Endo: NAD -Avoid hypoglycemia ID: Leukocytosis -Monitor fever and WBC curve Heme: h/o anemia -Trend CBC -Transfuse for hemoglobin less than 7 -transfuse one unit prbc today -Heparin drip -changed to PO eliquis -SCDs to bilateral lower extremities while in bed The high probability of a clinically significant, sudden or life threatening deterioration of the [cardio] system(s) required my full and direct attention, intervention and personal management. The aggregate critical care time was [60] minutes. This time is in addition to time spent performing reported procedures but includes the following: [x] Data Review and interpretation [x] Patient assessment and monitoring of vital signs [x] Documentation [x] Medication orders and management Disposition Plan: transfer to floor Total Time Spent with Patient (Minutes): 60 History Interval history: This is a 55-year-old -L[place] female with HTN, anemia, CHF, left ventricular dysfunction and uterine fibroids who presented to emergency department on 04/19 with complaints of shortness of breath worse on exertion and progressive swelling of bilateral lower extremities ongoing for the past 2 to 3 weeks. Patient states that she was vaccinated against COVID-19. Upon arrival to emergency department patient was found to be in A. fib with RVR and further work-up showed elevated BUN/creatinine and troponin and proBNP. CXR showed cardiomegaly with borderline pulmonary vascular congestion. Cardiology was consulted in the emergency department and patient was placed on amiodarone and heparin drip. Patient was transferred to ICU and CCM was consulted. 04/20: Patient states that she feels much better today. She was complaining of the urge to void and was straight cathed overnight. This morning bladder scan revealed urine volume of 400 and Arteaga catheter was placed with 600 mL of urine output. Patient remains at diuretic therapy. 04/21: Hemoglobin noted to be 6.9, will transfuse 1 unit PRBC. Patient was loaded with digoxin yesterday. Amiodarone drip was stopped overnight due to hypotension. P.o. amiodarone started today. Cardiology will add low-dose Eliquis. Troponins now trending down Hospitalist Physical - Constitutional Vitals: Temp Pulse Resp BP Pulse Ox 98.3 F 111 H 20 125/68 92 04/21/21 12:17 04/21/21 14:00 04/21/21 14:00 04/21/21 14:00 04/21/21 14:00 General appearance: Present: no acute distress, obese - EENT Eyes: Present: PERRL, EOM intact ENT: hearing intact, clear oral mucosa, dentition normal - Neck Neck: Present: normal ROM - Respiratory Respiratory effort: normal Respiratory: bilateral: diminished - Cardiovascular Rhythm: irregularly irregular Heart Sounds: Present: S1 & S2. Absent: systolic murmur, diastolic murmur - Extremities Extremities: no ischemia, pulses intact, pulses symmetrical, normal temperature, normal color, Full ROM Extremity abnormal: edema Peripheral Pulses: within normal limits - Abdominal General gastrointestinal: soft, non-tender, non-distended, normal bowel sounds - Integumentary Integumentary: Present: warm, dry - Psychiatric Psychiatric: cooperative - Neurologic Neurologic: CNII-XII intact, no focal deficits, moves all extremities - Allied Health Allied health notes reviewed: nursing, RT, social work HEART Score - HEART Score Troponin: Troponin T 0.037 ng/mL (0.00-0.029) H 04/21/21 07:26 Results - Labs CBC & Chem 7: 04/21/21 04:27 04/21/21 04:27 Labs: Laboratory Last Values WBC 15.7 K/mm3 (4.5-11.0) H 04/21/21 04:27 RBC 3.50 M/mm3 (3.65-5.03) L 04/21/21 04:27 Hgb 6.9 gm/dl (10.1-14.3) L 04/21/21 04:27 Hct 25.2 % (30.3-42.9) L 04/21/21 04:27 MCV 72 fl (79-97) L 04/21/21 04:27 MCH 20 pg (28-32) L 04/21/21 04:27 MCHC 27 % (30-34) L 04/21/21 04:27 RDW 22.1 % (13.2-15.2) H 04/21/21 04:27 Plt Count 288 K/mm3 (140-440) 04/21/21 04:27 Lymph % (Auto) 25.0 % (13.4-35.0) 04/20/21 04:47 [place] % (Auto) 15.6 % (0.0-7.3) H 04/20/21 04:47 Eos % (Auto) 0.4 % (0.0-4.3) 04/20/21 04:47 Baso % (Auto) 0.6 % (0.0-1.8) 04/20/21 04:47 Lymph # (Auto) 3.0 K/mm3 (1.2-5.4) 04/20/21 04:47 [place]y # (Auto) 1.9 K/mm3 (0.0-0.8) H 04/20/21 04:47 Eos # (Auto) 0.1 K/mm3 (0.0-0.4) 04/20/21 04:47 Baso # (Auto) 0.1 K/mm3 (0.0-0.1) 04/20/21 04:47 Seg Neutrophils % 58.4 % (40.0-70.0) 04/20/21 04:47 Seg Neutrophils # 7.1 K/mm3 (1.8-7.7) 04/20/21 04:47 PT 16.6 Sec. (12.2-14.9) H 04/18/21 22:26 INR 1.21 (0.87-1.13) H 04/18/21 22:26 APTT 30.3 Sec. (24.2-36.6) 04/18/21 22:26 Heparin Anti-Xa Level 0.39 U.I./ml (0.3-0.7) 04/20/21 15:26 Sodium 136 mmol/L (137-145) L 04/21/21 04:27 Potassium 4.0 mmol/L (3.6-5.0) 04/21/21 04:27 Chloride 99.5 mmol/L (98-107) 04/21/21 04:27 Carbon Dioxide 26 mmol/L (22-30) 04/21/21 04:27 Anion Gap 15 mmol/L 04/21/21 04:27 BUN 54 mg/dL (7-17) H 04/21/21 04:27 Creatinine 1.9 mg/dL (0.6-1.2) H 04/21/21 04:27 Estimated GFR 33 ml/min 04/21/21 04:27 BUN/Creatinine Ratio 28 % 04/21/21 04:27 Glucose 97 mg/dL (65-100) 04/21/21 04:27 Calcium 8.4 mg/dL (8.4-10.2) 04/21/21 04:27 Phosphorus 4.50 mg/dL (2.5-4.5) 04/21/21 04:27 Magnesium 2.40 mg/dL (1.7-2.3) H 04/21/21 04:27 Total Bilirubin 3.90 mg/dL (0.1-1.2) H 04/18/21 22:26 AST 35 units/L (5-40) 04/18/21 22:26 ALT 47 units/L (7-56) 04/18/21 22:26 Alkaline Phosphatase 134 units/L (35-129) H 04/18/21 22:26 Troponin T 0.037 ng/mL (0.00-0.029) H 04/21/21 07:26 NT-Pro-B Natriuret Pep 2124 pg/mL (0-900) H 04/18/21 22:26 Total Protein 8.0 g/dL (6.3-8.2) 04/18/21 22:26 Albumin 3.4 g/dL (3.9-5) L 04/18/21 22:26 Albumin/Globulin Ratio 0.7 % 04/18/21 22:26 Triglycerides 76 mg/dL (2-149) 04/18/21 22:26 Cholesterol 76 mg/dL (50-199) 04/18/21 22:26 LDL Cholesterol Direct 42 mg/dL (50-130) L 04/18/21 22:26 HDL Cholesterol 25 mg/dL (40-59) L 04/18/21 22:26 Cholesterol/HDL Ratio 3.04 % 04/18/21 22:26 TSH 2.420 mlU/mL (0.270-4.200) 04/18/21 22:26 Arteaga/IV: Voiding Method Indwelling Catheter Active Medications - Current Medications Current Medications: Generic Name Dose Route Start Last Admin Trade Name Freq PRN Reason Stop Dose Admin Acetaminophen 650 mg 04/19/21 01:13 04/20/21 15:35 Acetaminophen 325 Mg Tab PO 650 mg Q6H PRN Administration Pain MILD(1-3)/Fever >100.5/WALTER Amiodarone HCl 200 mg 04/21/21 14:00 Amiodarone 200 Mg Tab PO BID [facility] Apixaban 2.5 mg 04/21/21 22:00 Apixaban 2.5 Mg Tab PO Q12HR [facility] Protocol Aspirin 81 mg 04/20/21 15:00 04/21/21 09:35 Aspirin Ec 81 Mg Tab PO 81 mg QDAY SHELLY Administration Digoxin 0.125 mg 04/21/21 17:00 Digoxin 0.125 Mg Tab PO DAILY@1700 SHELLY Famotidine 10 mg 04/20/21 22:00 04/21/21 09:43 Famotidine 10 Mg Tab PO 10 mg BID SHELLY Administration Sodium Chloride 500 mls @ 0 mls/hr 04/21/21 11:29 Nacl 0.9% 500 Ml IV 04/21/21 23:59 ONCE SHELLY As Directed Isosorbide Dinitrate/Hydralazine 1 each 04/20/21 15:00 04/21/21 05:03 Isosorb Dinit/Hydralazine 20-37.5mg Tab PO 1 each Q8HR SHELLY Administration Magnesium Hydroxide 30 ml 04/19/21 01:13 Magnesium Hydroxide (Mom) Oral Liqd Udc PO Q4H PRN Constipation Metoprolol Tartrate 2.5 mg 04/20/21 13:52 Metoprolol Tartrate 5 Mg/5 Ml Inj IV Q6HR PRN HR>130 Metoprolol Tartrate 50 mg 04/21/21 16:00 Metoprolol Tartrate 50 Mg Tab PO Q6H SHELLY Morphine Sulfate 2 mg 04/19/21 01:13 Morphine 2 Mg/1 Ml Inj IV Q5MIN PRN Chest Pain unrelieved by NTG Nitroglycerin 0.4 mg 04/19/21 01:13 Nitroglycerin 0.4 Mg Tab Subl SL .Q5MIN PRN Chest Pain Ondansetron HCl 4 mg 04/20/21 17:00 04/20/21 17:34 Ondansetron 4 Mg/2 Ml Inj IV 4 mg Q8HR PRN Administration Nausea And Vomiting Oxycodone HCl 5 mg 04/20/21 13:24 04/21/21 10:21 Oxycodone 5 Mg Tab PO 5 mg Q6H PRN Administration Pain, Moderate (4-6) Senna 17.2 mg 04/20/21 22:00 04/20/21 22:26 Sennosides 8.6 Mg Tab PO 17.2 mg QHS SHELLY Administration Simethicone 80 mg 04/20/21 18:00 04/20/21 17:44 Simethicone 80 Mg Chew Tab PO 80 mg Q6H PRN Administration Gas pain Sodium Chloride 10 ml 04/19/21 10:00 04/21/21 09:37 Sodium Chloride 0.9% 10 Ml Flush Syringe IV 10 ml BID SHELLY Administration Sodium Chloride 10 ml 04/19/21 01:13 Sodium Chloride 0.9% 10 Ml Flush Syringe IV PRN PRN LINE FLUSH Spironolactone 25 mg 04/21/21 10:00 04/21/21 09:35 Spironolactone 25 Mg Tab PO 25 mg QDAY SHELLY Administration Nutrition/Malnutrition Assess - Dietary Evaluation Nutrition/Malnutrition Findings: Nutrition Notes Start: 04/19/21 09:36 Freq: Status: Active Protocol: Document 04/19/21 09:36 MELISSA (Rec: 04/19/21 09:40 MELISSA [id number]) Nutrition Notes Need for Assessment generated from: MD Order,Education Initial or Follow up Brief Note Current Diagnosis Acute Kidney Injury, Hypertension,Heart Failure Other Pertinent Diagnosis afib with RVR, anemia Current Diet Cardiac Pertinent Medications Lasix, Amiodarone gtt, Heparin gtt Height 5 ft 2 in Weight 113.398 kg [place] Body Weight (kg) 50.00 BMI 45.7 Weight Status Morbidly Obese Subjective/Other Information RD consulted for diet education. Pt in ED at this time. BP been controlled since admission (<140/90). Pt admitted with c/o SOB and progressive LE edema. Burn Absent Trauma Absent Minimum of two criteria No Is patient on ventilator? No Is Patient Ambulatory and/or Out of Bed No REE-([facility]-confined to bed) 2033.408 Kcal/Kg value to use for calculation 14 Approximate Energy Requirements Using 1588 kcal/Kg Calculation Used for Recommendations Kcal/kg Additional Notes Pro needs 0.8-1g/kg adjBW: 65- 82g/day Fluid needs 1ml/kcal Nutrition Intervention Follow-Up By: 04/23/21 Additional Comments F/U: diet education needs ( Heart healthy), intakes, transfer to medical floor
[2021-04-21] MEDS: APIXABAN 2.5 MG TAB PO SCH ×2 (15:37→21:24)
[2021-04-21] MEDS: AMIODARONE 200 MG TAB PO SCH ×2 (15:40→21:23)
[2021-04-21] MEDS: DIGOXIN 0.125 MG TAB PO SCH (18:40)
[2021-04-21] MEDS: SENNOSIDES 8.6 MG TAB PO SCH (21:23)
[2021-04-21] MEDS: SIMETHICONE 80 MG CHEW TAB PO PRN (21:30)
[2021-04-21 23:51] LABS: Mean Corpuscular HGB Conc 28 % (30-34); Mean Corpuscular Volume 75 fl (79-97); Platelet Count 310 K/mm3 (140-440); Red Blood Count 3.68 M/mm3 (3.65-5.03)
[2021-04-22 00:09] LABS: Hematocrit 27.5 % (30.3-42.9); Hemoglobin 7.8 gm/dl (10.1-14.3); INR 1.39 (0.87-1.13); Red Cell Distribution Width 22.2 % (13.2-15.2)
[2021-04-22 00:10] LABS: Partial Thromboplastin Time 35.3 Sec. (24.2-36.6)
[2021-04-22] MEDS: METOPROLOL TARTRATE 50 MG TAB PO SCH ×3 (04:00→17:20)
[2021-04-22] MEDS: ISOSORB DINIT/HYDRALAZINE 20-37.5MG TAB PO SCH ×3 (05:09→22:39)
[2021-04-22 05:20] LABS: Basophils # (Auto) 0.1 K/mm3 (0.0-0.1); Basophils % (Auto) 0.4 % (0.0-1.8); Eosinophils % (Auto) 0.3 % (0.0-4.3); Lymphocytes # (Auto) 1.6 K/mm3 (1.2-5.4); Lymphocytes % (Auto) 11.2 % (13.4-35.0); Mean Corpuscular HGB Conc 28 % (30-34); Mean Corpuscular Volume 75 fl (79-97); Monocytes # (Auto) 1.7 K/mm3 (0.0-0.8); Monocytes % (Auto) 12.2 % (0.0-7.3); Platelet Count 279 K/mm3 (140-440)
[2021-04-22 05:24] LABS: Hematocrit 27.6 % (30.3-42.9); Hemoglobin 7.7 gm/dl (10.1-14.3); Red Cell Distribution Width 22.2 % (13.2-15.2)
[2021-04-22 05:31] LABS: Calcium 8.9 mg/dL (8.4-10.2)
--- NOTE | 2021-04-22 09:56 | XRay Report ---
CHEST 1 VIEW 04/22/2021 9:13 AM INDICATION / CLINICAL INFORMATION: fever/hypoxia. COMPARISON: 2 views of the chest from 04/18/2021. FINDINGS: SUPPORT DEVICES: None. HEART / MEDIASTINUM: Stable cardiomegaly with mild central vascular congestion. LUNGS / PLEURA: Bilateral pulmonary opacities have increased. No significant pleural effusion. No pne umothorax. ADDITIONAL FINDINGS: No significant additional findings. IMPRESSION: Stable cardiomegaly with central vascular congestion and increased lateral pulmonary opacities. Given the cardiac findings, this could represent an acute exacerbation of CHF. However, given the history of fever and hypoxia, pneumonia cannot be excluded. Continued radiographic follow-up to resolution is recommended. Signer Name: Ron Byrd MD Signed: 04/22/2021 9:52 AM Workstation Name: [id number]
[2021-04-22] MEDS: ASPIRIN EC 81 MG TAB PO SCH (11:14)
[2021-04-22] MEDS: FAMOTIDINE 10 MG TAB PO SCH ×2 (11:14→22:40)
[2021-04-22] MEDS: APIXABAN 2.5 MG TAB PO SCH ×2 (11:14→22:40)
[2021-04-22] MEDS: AMIODARONE 200 MG TAB PO SCH ×2 (11:14→22:40)
[2021-04-22] MEDS: SPIRONOLACTONE 25 MG TAB PO SCH (11:15)
--- NOTE | 2021-04-22 12:07 | Progress Note ---
<CLAUDEJASMEET IdaliaMelida - Last Filed: 04/22/21 16:08> Assessment and Plan Assessment and plan: This is a 55-year-old female with HTN, anemia, CHF, left ventricular dysfunction and uterine fibroids admitted with A. fib with RVR and acute on chronic CHF exacerbation Neuro: NAD -Avoid delirium -Reorientation as needed -Maintain sleep-wake cycle -As needed analgesics Cardio: A. fib with RVR, acute on chronic CHF exacerbation, elevated troponin, h/o HTN -Cardiology consulted, appreciate recommendations -Amiodarone and heparin drip -Echocardiogram shows four-chamber dilated cardiomyopathy, EF 15 to 20% -Blood pressure monitor per protocol -CCM consulted, appreciate recommendations -IV Lasix twice daily -stopped today d/t increasing Cr -proBNP on admit 2123 -TSH 2.4 -Aspirin, digoxin, isosorbide/hydralazine, metoprolol, spironolactone -As needed nitroglycerin Pulmonary: ? [facility] or [facility] -Supplemental oxygen as needed -desatting noted with sleeping -Will need outpatient followup with pulm for sleep study -Pulmonary hygiene -SPO2 monitoring GI: MO -Cardiac diet -24-hour positive 420 mL -BR: Senokot -PPI : Acute on possibly chronic CKD, hyponatremia, hypermagnesemia -Presented with a BUN/creatinine of 1.4/40 -Renally dose medications -Avoid nephrotoxic medications -Consider nephrology consult if worsens -Strict intake and output -Daily weights -Trend BMP Endo: NAD -Avoid hypoglycemia ID: Leukocytosis -Monitor fever and WBC curve Heme: h/o anemia -Trend CBC -Transfuse for hemoglobin less than 7 -transfuse one unit prbc today -s/p Heparin drip now to PO eliquis -SCDs to bilateral lower extremities while in bed The high probability of a clinically significant, sudden or life threatening deterioration of the [cardio] system(s) required my full and direct attention, intervention and personal management. The aggregate critical care time was [60] minutes. This time is in addition to time spent performing reported procedures but includes the following: [x] Data Review and interpretation [x] Patient assessment and monitoring of vital signs [x] Documentation [x] Medication orders and management Disposition Plan: transfer to floor Total Time Spent with Patient (Minutes): 60 History Interval history: This is a 55-year-old -Italian female with HTN, anemia, CHF, left ventricular dysfunction and uterine fibroids who presented to emergency department on 04/19 with complaints of shortness of breath worse on exertion and progressive swelling of bilateral lower extremities ongoing for the past 2 to 3 weeks. Patient states that she was vaccinated against COVID-19. Upon arrival to emergency department patient was found to be in A. fib with RVR and further work-up showed elevated BUN/creatinine and troponin and proBNP. CXR showed cardiomegaly with borderline pulmonary vascular congestion. Cardiology was consulted in the emergency department and patient was placed on amiodarone and heparin drip. Patient was transferred to ICU and CCM was consulted. 04/20: Patient states that she feels much better today. She was complaining of the urge to void and was straight cathed overnight. This morning bladder scan revealed urine volume of 400 and Arteaga catheter was placed with 600 mL of urine output. Patient remains at diuretic therapy. 04/21: Hemoglobin noted to be 6.9, will transfuse 1 unit PRBC. Patient was loaded with digoxin yesterday. Amiodarone drip was stopped overnight due to hypotension. P.o. amiodarone started today. Cardiology will add low-dose Eliquis. Troponins now trending down 04/22: CXr and blood cultures ordered today for tmax 100.9. Doppler US for upper extremity swelling pending from overnight. Hospitalist Physical - Constitutional Vitals: Temp Pulse Resp BP Pulse Ox 97.9 F 105 H 12 106/70 96 04/22/21 11:48 04/22/21 11:01 04/22/21 11:01 04/22/21 11:01 04/22/21 11:01 General appearance: Present: no acute distress, obese - EENT Eyes: Present: PERRL, EOM intact ENT: clear oral mucosa, dentition normal - Neck Neck: Present: normal ROM - Respiratory Respiratory effort: normal Respiratory: bilateral: diminished - Cardiovascular Rhythm: irregularly irregular Heart Sounds: Present: S1 & S2. Absent: systolic murmur, diastolic murmur - Extremities Extremities: no ischemia, pulses intact, pulses symmetrical, normal temperature, normal color, Full ROM Extremity abnormal: edema Peripheral Pulses: within normal limits - Abdominal General gastrointestinal: soft, non-tender, non-distended, normal bowel sounds - Integumentary Integumentary: Present: warm, dry - Psychiatric Psychiatric: cooperative - Neurologic Neurologic: CNII-XII intact, no focal deficits, moves all extremities - Allied Health Allied health notes reviewed: nursing, RT, social work HEART Score - HEART Score Troponin: Troponin T 0.037 ng/mL (0.00-0.029) H 04/21/21 07:26 Results - Labs CBC & Chem 7: 04/22/21 04:38 04/22/21 04:38 Labs: Laboratory Last Values WBC 14.3 K/mm3 (4.5-11.0) H 04/22/21 04:38 RBC 3.70 M/mm3 (3.65-5.03) 04/22/21 04:38 Hgb 7.7 gm/dl (10.1-14.3) L 04/22/21 04:38 Hct 27.6 % (30.3-42.9) L 04/22/21 04:38 MCV 75 fl (79-97) L 04/22/21 04:38 MCH 21 pg (28-32) L 04/22/21 04:38 MCHC 28 % (30-34) L 04/22/21 04:38 RDW 22.2 % (13.2-15.2) H 04/22/21 04:38 Plt Count 279 K/mm3 (140-440) 04/22/21 04:38 Lymph % (Auto) 11.2 % (13.4-35.0) L 04/22/21 04:38 Story % (Auto) 12.2 % (0.0-7.3) H 04/22/21 04:38 Eos % (Auto) 0.3 % (0.0-4.3) 04/22/21 04:38 Baso % (Auto) 0.4 % (0.0-1.8) 04/22/21 04:38 Lymph # (Auto) 1.6 K/mm3 (1.2-5.4) 04/22/21 04:38 Story # (Auto) 1.7 K/mm3 (0.0-0.8) H 04/22/21 04:38 Eos # (Auto) 0.0 K/mm3 (0.0-0.4) 04/22/21 04:38 Baso # (Auto) 0.1 K/mm3 (0.0-0.1) 04/22/21 04:38 Seg Neutrophils % 75.9 % (40.0-70.0) H 04/22/21 04:38 Seg Neutrophils # 10.9 K/mm3 (1.8-7.7) H 04/22/21 04:38 PT 18.5 Sec. (12.2-14.9) H 04/21/21 23:07 INR 1.39 (0.87-1.13) H 04/21/21 23:07 APTT 35.3 Sec. (24.2-36.6) 04/21/21 23:07 Heparin Anti-Xa Level 1.42 U.I./ml (0.3-0.7) H 04/21/21 23:07 Sodium 134 mmol/L (137-145) L 04/22/21 04:38 Potassium 3.9 mmol/L (3.6-5.0) 04/22/21 04:38 Chloride 98.0 mmol/L (98-107) 04/22/21 04:38 Carbon Dioxide 20 mmol/L (22-30) L 04/22/21 04:38 Anion Gap 20 mmol/L 04/22/21 04:38 BUN 53 mg/dL (7-17) H 04/22/21 04:38 Creatinine 1.9 mg/dL (0.6-1.2) H 04/22/21 04:38 Estimated GFR 33 ml/min 04/22/21 04:38 BUN/Creatinine Ratio 28 % 04/22/21 04:38 Glucose 112 mg/dL (65-100) H 04/22/21 04:38 Calcium 8.9 mg/dL (8.4-10.2) 04/22/21 04:38 Phosphorus 4.50 mg/dL (2.5-4.5) 04/21/21 04:27 Magnesium 2.40 mg/dL (1.7-2.3) H 04/21/21 04:27 Total Bilirubin 3.90 mg/dL (0.1-1.2) H 04/18/21 22:26 AST 35 units/L (5-40) 04/18/21 22:26 ALT 47 units/L (7-56) 04/18/21 22:26 Alkaline Phosphatase 134 units/L (35-129) H 04/18/21 22:26 Troponin T 0.037 ng/mL (0.00-0.029) H 04/21/21 07:26 NT-Pro-B Natriuret Pep 2124 pg/mL (0-900) H 04/18/21 22:26 Total Protein 8.0 g/dL (6.3-8.2) 04/18/21 22:26 Albumin 3.4 g/dL (3.9-5) L 04/18/21 22:26 Albumin/Globulin Ratio 0.7 % 04/18/21 22:26 Triglycerides 76 mg/dL (2-149) 04/18/21 22: Cholesterol 76 mg/dL (50-199) 04/18/21 22: LDL Cholesterol Direct 42 mg/dL (50-130) L 04/18/21 22:26 HDL Cholesterol 25 mg/dL (40-59) L 04/18/21 22:26 Cholesterol/HDL Ratio 3.04 % 04/18/21 22:26 TSH 2.420 mlU/mL (0.270-4.200) 04/18/21 22:26 Blood Type O NEGATIVE 04/21/21 16:15 Antibody Screen Negative 04/21/21 16:15 Crossmatch See Detail 04/21/21 16:15 Arteaga/IV: Voiding Method Indwelling Catheter Active Medications - Current Medications Current Medications: Generic Name Dose Route Start Last Admin Trade Name Freq PRN Reason Stop Dose Admin Acetaminophen 650 mg 04/19/21 01:13 04/20/21 15:35 Acetaminophen 325 Mg Tab PO 650 mg Q6H PRN Administration Pain MILD(1-3)/Fever >100.5/WALTER Amiodarone HCl 200 mg 04/21/21 15:00 04/22/21 11:14 Amiodarone 200 Mg Tab PO 200 mg BID SHELLY Administration Apixaban 2.5 mg 04/21/21 15:00 04/22/21 11:14 Apixaban 2.5 Mg Tab PO 2.5 mg Q12HR SHELLY Administration Protocol Aspirin 81 mg 04/20/21 15:00 04/22/21 11:14 Aspirin Ec 81 Mg Tab PO 81 mg QDAY SHELLY Administration Digoxin 0.125 mg 04/21/21 17:00 04/21/21 18:40 Digoxin 0.125 Mg Tab PO 0.125 mg DAILY@1700 SHELLY Administration Famotidine 10 mg 04/20/21 22:00 04/22/21 11:14 Famotidine 10 Mg Tab PO 10 mg BID SHELLY Administration Isosorbide Dinitrate/Hydralazine 1 each 04/20/21 15:00 04/22/21 05:09 Isosorb Dinit/Hydralazine 20-37.5mg Tab PO 1 each Q8HR SHELLY Administration Magnesium Hydroxide 30 ml 04/19/21 01:13 Magnesium Hydroxide (Mom) Oral Liqd Udc PO Q4H PRN Constipation Metoprolol Tartrate 2.5 mg 04/20/21 13:52 Metoprolol Tartrate 5 Mg/5 Ml Inj IV Q6HR PRN HR>130 Metoprolol Tartrate 50 mg 04/21/21 16:00 04/22/21 11:19 Metoprolol Tartrate 50 Mg Tab PO 50 mg Q6H SHELLY Administration Morphine Sulfate 2 mg 04/19/21 01:13 Morphine 2 Mg/1 Ml Inj IV Q5MIN PRN Chest Pain unrelieved by NTG Nitroglycerin 0.4 mg 04/19/21 01:13 Nitroglycerin 0.4 Mg Tab Subl SL .Q5MIN PRN Chest Pain Ondansetron HCl 4 mg 04/20/21 17:00 04/20/21 17:34 Ondansetron 4 Mg/2 Ml Inj IV 4 mg Q8HR PRN Administration Nausea And Vomiting Oxycodone HCl 5 mg 04/20/21 13:24 04/21/21 21:30 Oxycodone 5 Mg Tab PO 5 mg Q6H PRN Administration Pain, Moderate (4-6) Senna 17.2 mg 04/20/21 22:00 04/21/21 21:23 Sennosides 8.6 Mg Tab PO 17.2 mg QHS SHELLY Administration Simethicone 80 mg 04/20/21 18:00 04/21/21 21:30 Simethicone 80 Mg Chew Tab PO 80 mg Q6H PRN Administration Gas pain Sodium Chloride 10 ml 04/19/21 10:00 04/22/21 11:20 Sodium Chloride 0.9% 10 Ml Flush Syringe IV 10 ml BID SHELLY Administration Sodium Chloride 10 ml 04/19/21 01:13 Sodium Chloride 0.9% 10 Ml Flush Syringe IV PRN PRN LINE FLUSH Spironolactone 25 mg 04/21/21 10:00 04/22/21 11:15 Spironolactone 25 Mg Tab PO 25 mg QDAY SHELLY Administration Nutrition/Malnutrition Assess - Dietary Evaluation Nutrition/Malnutrition Findings: Nutrition Notes Start: 04/19/21 09:36 Freq: Status: Active Protocol: Document 04/19/21 09:36 [facility] (Rec: 04/19/21 09:40 [facility] [id number]) Nutrition Notes Need for Assessment generated from: MD Order,Education Initial or Follow up Brief Note Current Diagnosis Acute Kidney Injury, Hypertension,Heart Failure Other Pertinent Diagnosis afib with RVR, anemia Current Diet Cardiac Pertinent Medications Lasix, Amiodarone gtt, Heparin gtt Height 5 ft 2 in Weight 113.398 kg [place] Body Weight (kg) 50.00 BMI 45.7 Weight Status Morbidly Obese Subjective/Other Information RD consulted for diet education. Pt in ED at this time. BP been controlled since admission (<140/90). Pt admitted with c/o SOB and progressive LE edema. Burn Absent Trauma Absent Minimum of two criteria No Is patient on ventilator? No Is Patient Ambulatory and/or Out of Bed No REE-([facility]-confined to bed) 2034.408 Kcal/Kg value to use for calculation 14 Approximate Energy Requirements Using 1588 kcal/Kg Calculation Used for Recommendations Kcal/kg Additional Notes Pro needs 0.8-1g/kg adjBW: 65- 82g/day Fluid needs 1ml/kcal Nutrition Intervention Follow-Up By: 04/23/21 Additional Comments F/U: diet education needs ( Heart healthy), intakes, transfer to medical floor <JENS GOMEZA - Last Filed: 04/23/21 07:16> Assessment and Plan Assessment and plan: I concur with the aforementioned note listed above. Hospitalist Physical - Constitutional Vitals: Temp Pulse Resp BP Pulse Ox 97.9 F 83 18 115/66 97 04/23/21 03:46 04/23/21 03:46 04/23/21 03:46 04/23/21 03:46 04/23/21 03:46 HEART Score - HEART Score Troponin: Troponin T 0.037 ng/mL (0.00-0.029) H 04/21/21 07:26 Results - Labs CBC & Chem 7: 04/23/21 05:48 04/23/21 05:48 Labs: Laboratory Last Values WBC 10.7 K/mm3 (4.5-11.0) 04/23/21 05:48 RBC 3.82 M/mm3 (3.65-5.03) 04/23/21 05:48 Hgb 8.2 gm/dl (10.1-14.3) L 04/23/21 05:48 Hct 28.5 % (30.3-42.9) L 04/23/21 05:48 MCV 75 fl (79-97) L 04/23/21 05:48 MCH 22 pg (28-32) L 04/23/21 05:48 MCHC 29 % (30-34) L 04/23/21 05:48 RDW 22.4 % (13.2-15.2) H 04/23/21 05:48 Plt Count 284 K/mm3 (140-440) 04/23/21 05:48 Lymph % (Auto) 11.2 % (13.4-35.0) L 04/22/21 04:38 Story % (Auto) 12.2 % (0.0-7.3) H 04/22/21 04:38 Eos % (Auto) 0.3 % (0.0-4.3) 04/22/21 04:38 Baso % (Auto) 0.4 % (0.0-1.8) 04/22/21 04:38 Lymph # (Auto) 1.6 K/mm3 (1.2-5.4) 04/22/21 04:38 Story # (Auto) 1.7 K/mm3 (0.0-0.8) H 04/22/21 04:38 Eos # (Auto) 0.0 K/mm3 (0.0-0.4) 04/22/21 04:38 Baso # (Auto) 0.1 K/mm3 (0.0-0.1) 04/22/21 04:38 Seg Neutrophils % 75.9 % (40.0-70.0) H 04/22/21 04:38 Seg Neutrophils # 10.9 K/mm3 (1.8-7.7) H 04/22/21 04:38 PT 18.5 Sec. (12.2-14.9) H 04/21/21 23:07 INR 1.39 (0.87-1.13) H 04/21/21 23:07 APTT 35.3 Sec. (24.2-36.6) 04/21/21 23:07 Heparin Anti-Xa Level 1.42 U.I./ml (0.3-0.7) H 04/21/21 23:07 Sodium 138 mmol/L (137-145) 04/23/21 05:48 Potassium 4.2 mmol/L (3.6-5.0) 04/23/21 05:48 Chloride 98.4 mmol/L (98-107) 04/23/21 05:48 Carbon Dioxide 25 mmol/L (22-30) 04/23/21 05:48 Anion Gap 19 mmol/L 04/23/21 05:48 BUN 54 mg/dL (7-17) H 04/23/21 05:48 Creatinine 1.9 mg/dL (0.6-1.2) H 04/23/21 05:48 Estimated GFR 33 ml/min 04/23/21 05:48 BUN/Creatinine Ratio 28 % 04/23/21 05:48 Glucose 101 mg/dL (65-100) H 04/23/21 05:48 Calcium 8.7 mg/dL (8.4-10.2) 04/23/21 05:48 Phosphorus 4.50 mg/dL (2.5-4.5) 04/21/21 04:27 Magnesium 2.40 mg/dL (1.7-2.3) H 04/21/21 04:27 Total Bilirubin 3.90 mg/dL (0.1-1.2) H 04/18/21 22:26 AST 35 units/L (5-40) 04/18/21 22:26 ALT 47 units/L (7-56) 04/18/21 22:26 Alkaline Phosphatase 134 units/L (35-129) H 04/18/21 22:26 Troponin T 0.037 ng/mL (0.00-0.029) H 04/21/21 07:26 NT-Pro-B Natriuret Pep 2124 pg/mL (0-900) H 04/18/21 22:26 Total Protein 8.0 g/dL (6.3-8.2) 04/18/21 22:26 Albumin 3.4 g/dL (3.9-5) L 04/18/21 22:26 Albumin/Globulin Ratio 0.7 % 04/18/21 22:26 Triglycerides 76 mg/dL (2-149) 04/18/21 22:26 Cholesterol 76 mg/dL (50-199) 04/18/21 22:26 LDL Cholesterol Direct 42 mg/dL (50-130) L 04/18/21 22:26 HDL Cholesterol 25 mg/dL (40-59) L 04/18/21 22:26 Cholesterol/HDL Ratio 3.04 % 04/18/21 22:26 TSH 2.420 mlU/mL (0.270-4.200) 04/18/21 22:26 Blood Type O NEGATIVE 04/21/21 16:15 Antibody Screen Negative 04/21/21 16:15 Crossmatch See Detail 04/21/21 16:15 Microbiology: Microbiology 04/22/21 10:48 Peripheral/Venous Blood Culture - Preliminary Culture in Progress 04/22/21 10:48 Peripheral/Venous Blood Culture - Preliminary Culture in Progress Arteaga/IV: Voiding Method Indwelling Catheter Active Medications - Current Medications Current Medications: Generic Name Dose Route Start Last Admin Trade Name Freq PRN Reason Stop Dose Admin Acetaminophen 650 mg 04/19/21 01:13 04/20/21 15:35 Acetaminophen 325 Mg Tab PO 650 mg Q6H PRN Administration Pain MILD(1-3)/Fever >100.5/WALTER Amiodarone HCl 200 mg 04/21/21 15:00 04/22/21 22:40 Amiodarone 200 Mg Tab PO 200 mg BID SHELLY Administration Apixaban 2.5 mg 04/21/21 15:00 04/22/21 22:40 Apixaban 2.5 Mg Tab PO 2.5 mg Q12HR SHELLY Administration Protocol Aspirin 81 mg 04/20/21 15:00 04/22/21 11:14 Aspirin Ec 81 Mg Tab PO 81 mg QDAY SHELLY Administration Digoxin 0.125 mg 04/21/21 17:00 04/22/21 17:20 Digoxin 0.125 Mg Tab PO 0.125 mg DAILY@1700 SHELLY Administration Famotidine 10 mg 04/20/21 22:00 04/22/21 22:40 Famotidine 10 Mg Tab PO 10 mg BID SHELLY Administration Isosorbide Dinitrate/Hydralazine 1 each 04/20/21 15:00 04/23/21 05:42 Isosorb Dinit/Hydralazine 20-37.5mg Tab PO Not Given Q8HR SHELLY Magnesium Hydroxide 30 ml 04/19/21 01:13 Magnesium Hydroxide (Mom) Oral Liqd Udc PO Q4H PRN Constipation Metoprolol Tartrate 2.5 mg 04/20/21 13:52 Metoprolol Tartrate 5 Mg/5 Ml Inj IV Q6HR PRN HR>130 Metoprolol Tartrate 50 mg 04/21/21 16:00 04/22/21 17:20 Metoprolol Tartrate 50 Mg Tab PO 50 mg Q6H SHELLY Administration Morphine Sulfate 2 mg 04/19/21 01:13 Morphine 2 Mg/1 Ml Inj IV Q5MIN PRN Chest Pain unrelieved by NTG Nitroglycerin 0.4 mg 04/19/21 01:13 Nitroglycerin 0.4 Mg Tab Subl SL .Q5MIN PRN Chest Pain Ondansetron HCl 4 mg 04/20/21 17:00 04/20/21 17:34 Ondansetron 4 Mg/2 Ml Inj IV 4 mg Q8HR PRN Administration Nausea And Vomiting Oxycodone HCl 5 mg 04/20/21 13:24 04/22/21 22:38 Oxycodone 5 Mg Tab PO 5 mg Q6H PRN Administration Pain, Moderate (4-6) Senna 17.2 mg 04/20/21 22:00 04/22/21 22:39 Sennosides 8.6 Mg Tab PO 8.6 mg QHS SHELLY Administration Simethicone 80 mg 04/20/21 18:00 04/21/21 21:30 Simethicone 80 Mg Chew Tab PO 80 mg Q6H PRN Administration Gas pain Sodium Chloride 10 ml 04/19/21 10:00 04/22/21 22:44 Sodium Chloride 0.9% 10 Ml Flush Syringe IV 10 ml BID SHELLY Administration Sodium Chloride 10 ml 04/19/21 01:13 Sodium Chloride 0.9% 10 Ml Flush Syringe IV PRN PRN LINE FLUSH Spironolactone 25 mg 04/21/21 10:00 04/22/21 11:15 Spironolactone 25 Mg Tab PO 25 mg QDAY SHELLY Administration Nutrition/Malnutrition Assess - Dietary Evaluation Nutrition/Malnutrition Findings: Nutrition Notes Start: 04/19/21 09:36 Freq: Status: Active Protocol: Document 04/19/21 09:36 MELISSA (Rec: 04/19/21 09:40 MELISSA [id number]) Nutrition Notes Need for Assessment generated from: MD Order,Education Initial or Follow up Brief Note Current Diagnosis Acute Kidney Injury, Hypertension,Heart Failure Other Pertinent Diagnosis afib with RVR, anemia Current Diet Cardiac Pertinent Medications Lasix, Amiodarone gtt, Heparin gtt Height 5 ft 2 in Weight 113.398 kg [place] Body Weight (kg) 50.00 BMI 45.7 Weight Status Morbidly Obese Subjective/Other Information RD consulted for diet education. Pt in ED at this time. BP been controlled since admission (<140/90). Pt admitted with c/o SOB and progressive LE edema. Burn Absent Trauma Absent Minimum of two criteria No Is patient on ventilator? No Is Patient Ambulatory and/or Out of Bed No REE-([facility]-confined to bed) 2034.408 Kcal/Kg value to use for calculation 14 Approximate Energy Requirements Using 1588 kcal/Kg Calculation Used for Recommendations Kcal/kg Additional Notes Pro needs 0.8-1g/kg adjBW: 65- 82g/day Fluid needs 1ml/kcal Nutrition Intervention Follow-Up By: 04/23/21 Additional Comments F/U: diet education needs ( Heart healthy), intakes, transfer to medical floor
--- NOTE | 2021-04-22 12:40 | Progress Note ---
Assessment and Plan - Patient Problems (1) CHF (congestive heart failure) Current Visit: Yes Status: Acute Qualifiers: Heart failure type: unspecified Heart failure chronicity: acute Qualified Code(s): I50.9 - Heart failure, unspecified Plan to address problem: Patient presents with 3 weeks of shortness of breath and edema. Clinical evidence of heart failure. Echocardiogram shows a severe four-chamber dilated cardiomyopathy, of uncertain chronicity. Patient reports no prior cardiac history, follows up routinely at [facility]. We will continue guideline directed medical therapy including optimal diuretics. Further evaluation and management will depend on clinical course. (2) Atrial fibrillation with RVR Current Visit: Yes Status: Acute Plan to address problem: Atrial fibrillation of undetermined chronicity. Atrial fibrillation is present in the setting of a four-chamber dilated cardiomyopathy. Patient is on rate control therapy. Also started on low-dose Eliquis for long-term oral anticoagulation. Anticoagulation therapy should be followed judiciously due to her history of chronic anemia. Subjective Date of service: 04/22/21 Interval history: Patient is comfortable, no new cardiac complaints. On pvc monitor, atrial fibrillation rate is better controlled, 90s to 100s. Objective Vital Signs Temp Pulse Resp BP Pulse Ox 04/22/21 12:00 97.9 F 04/22/21 11:48 97.9 F 04/22/21 11:01 105 H 12 106/70 96 04/22/21 10:31 102 H 19 106/70 89 04/22/21 10:01 107 H 18 106/70 91 04/22/21 10:00 98 H 04/22/21 09:31 112 H 16 106/70 97 04/22/21 09:01 106/70 96 04/22/21 08:31 106/70 97 04/22/21 08:01 99 H 19 106/70 97 04/22/21 07:50 100.0 F H 04/22/21 07:30 111 H 18 106/70 85 04/22/21 07:00 109 H 19 109/75 84 04/22/21 06:30 119 H 21 113/73 89 04/22/21 06:00 93 H 21 108/72 85 04/22/21 05:30 105 H 20 115/70 88 04/22/21 05:09 102 H 106/65 04/22/21 05:00 88 17 96/65 84 04/22/21 04:33 104 H 17 110/61 93 04/22/21 04:00 98.9 F 88 16 111/77 97 04/22/21 03:30 94 H 16 116/71 98 04/22/21 03:00 95 H 18 108/60 98 04/22/21 02:30 101 H 18 110/61 98 04/22/21 02:00 99 H 18 114/66 98 04/22/21 01:30 113 H 17 110/56 99 04/22/21 01:00 108 H 20 117/72 95 04/22/21 00:30 117 H 18 116/74 96 04/22/21 00:00 100.9 F H 99 H 16 116/78 97 04/21/21 23:30 110 H 18 119/83 97 04/21/21 23:00 116 H 18 134/88 85 04/21/21 22:30 111 H 19 131/78 94 04/21/21 22:00 107 H 23 143/77 93 04/21/21 21:50 101 H 116/78 04/21/21 21:31 104 H 121/85 04/21/21 21:30 113 H 22 121/85 96 04/21/21 21:00 124 H 17 105/79 99 04/21/21 20:30 115 H 23 139/64 97 04/21/21 20:20 98.8 F 04/21/21 20:00 98.5 F 110 H 21 121/66 98 04/21/21 19:50 98.1 F 04/21/21 19:30 100 H 22 122/65 96 04/21/21 19:20 98.3 F 04/21/21 19:00 112 H 38 H 111/66 95 04/21/21 18:50 98.8 F 109 H 22 111/66 97 04/21/21 18:40 101 H 121/71 04/21/21 18:35 98.6 F 111 H 21 121/71 98 04/21/21 18:30 110 H 20 121/71 96 04/21/21 18:00 104 H 23 110/63 98 04/21/21 17:30 112 H 22 118/52 94 04/21/21 17:00 119 H 20 113/53 97 04/21/21 16:30 118 H 22 103/53 98 12/15/21 16:00 98.2 F 109 H 19 103/69 97 04/21/21 15:36 109 H 120/69 04/21/21 15:30 117 H 21 120/69 91 04/21/21 15:00 96 H 19 110/55 95 04/21/21 14:30 114 H 20 115/62 95 04/21/21 14:00 111 H 20 125/68 92 04/21/21 13:30 121 H 18 117/63 99 04/21/21 13:00 119 H 21 124/74 92 - Physical Examination General: No Apparent Distress HEENT: Positive: PERRL Neck: Positive: neck supple Cardiac: Positive: irregularly irregular Lungs: Positive: Decreased Breath Sounds Neuro: Positive: Grossly Intact Abdomen: Positive: Soft Skin: Positive: Clear Extremities: Present: +1 Edema - Labs and Meds Coagulation 04/21/21 Range/Units 23:07 PT 18.5 H (12.2-14.9) Sec. INR 1.39 H (0.87-1.13) APTT 35.3 (24.2-36.6) Sec. CBC 04/21/21 04/22/21 Range/Units 23:07 04:38 WBC 16.3 H 14.3 H (4.5-11.0) K/mm3 RBC 3.68 3.70 (3.65-5.03) M/mm3 Hgb 7.8 L 7.7 L (10.1-14.3) gm/dl Hct 27.5 L 27.6 L (30.3-42.9) % Plt Count 310 279 (140-440) K/mm3 Lymph # (Auto) 1.6 (1.2-5.4) K/mm3 [place] # (Auto) 1.7 H (0.0-0.8) K/mm3 Eos # (Auto) 0.0 (0.0-0.4) K/mm3 Baso # (Auto) 0.1 (0.0-0.1) K/mm3 Comprehensive Metabolic Panel 04/21/21 04/22/21 Range/Units 23:07 04:38 Sodium 134 L (137-145) mmol/L Potassium 3.9 (3.6-5.0) mmol/L Chloride 98.0 (98-107) mmol/L Carbon Dioxide 20 L (22-30) mmol/L BUN 53 H (7-17) mg/dL Creatinine 2.0 H 1.9 H (0.6-1.2) mg/dL Glucose 112 H (65-100) mg/dL Calcium 8.9 (8.4-10.2) mg/dL
--- NOTE | 2021-04-22 12:58 | Vascular Lab Report ---
DUPLEX DOPPLER UPPER EXTREMITY VENOUS, RIGHT INDICATION / CLINICAL INFORMATION: Rule out DVT. TECHNIQUE: Duplex doppler imaging was performed through the veins of the right upper extremity using venous compression and other maneuvers. COMPARISON: None available. FINDINGS: RIGHT INTERNAL JUGULAR VEIN: Negative. RIGHT SUBCLAVIAN VEIN: Negative. RIGHT AXILLARY VEIN: Negative. RIGHT BRACHIAL VEIN: Negative. RIGHT FOREARM VEINS: Negative. RIGHT BASILIC VEIN (SUPERFICIAL): Negative. ADDITIONAL FINDINGS: None. IMPRESSION: 1. No sonographic evidence for DVT. Signer Name: Rhys Plasencia Jr, MD Signed: 04/22/2021 12:53 PM Workstation Name: [id number]
[2021-04-22] MEDS: DIGOXIN 0.125 MG TAB PO SCH (17:20)
[2021-04-22] MEDS: oxyCODONE 5 MG TAB PO PRN (22:38)
[2021-04-22] MEDS: SENNOSIDES 8.6 MG TAB PO SCH (22:39)
[2021-04-23] MEDS: ISOSORB DINIT/HYDRALAZINE 20-37.5MG TAB PO SCH ×3 (05:42→21:46)
[2021-04-23 07:10] LABS: Hematocrit 28.5 % (30.3-42.9); Hemoglobin 8.2 gm/dl (10.1-14.3); Mean Corpuscular HGB Conc 29 % (30-34); Mean Corpuscular Volume 75 fl (79-97); Red Blood Count 3.82 M/mm3 (3.65-5.03); Red Cell Distribution Width 22.4 % (13.2-15.2)
[2021-04-23 07:11] LABS: Calcium 8.7 mg/dL (8.4-10.2); Platelet Count 284 K/mm3 (140-440)
[2021-04-23] MEDS: FUROSEMIDE 40 MG/4 ML INJ IV SCH (09:10)
[2021-04-23] MEDS: APIXABAN 2.5 MG TAB PO SCH ×2 (09:10→21:47)
[2021-04-23] MEDS: FAMOTIDINE 10 MG TAB PO SCH ×2 (09:10→21:46)
[2021-04-23] MEDS: ASPIRIN EC 81 MG TAB PO SCH (09:10)
[2021-04-23] MEDS: SPIRONOLACTONE 25 MG TAB PO SCH (09:10)
[2021-04-23] MEDS: AMIODARONE 200 MG TAB PO SCH ×2 (09:10→21:47)
[2021-04-23 09:11] LABS: Basophils # (Auto) 0.1 K/mm3 (0.0-0.1); Eosinophils % (Auto) 0.3 % (0.0-4.3); Monocytes # (Auto) 1.8 K/mm3 (0.0-0.8); Monocytes % (Auto) 17.3 % (0.0-7.3)
[2021-04-23] MEDS: METOPROLOL TARTRATE 50 MG TAB PO SCH ×4 (09:16→22:01)
[2021-04-23 11:39] LABS: Total Cells Counted 100
[2021-04-23 11:40] LABS: Anisocytosis 1+; Hypochromasia 2+; Myelocytes # (Manual) 0.1 K/mm3; Platelet Estimate Consistent w Auto
--- NOTE | 2021-04-23 13:01 | Progress Note ---
Assessment and Plan - Patient Problems (1) CHF (congestive heart failure) Current Visit: Yes Status: Acute Qualifiers: Heart failure type: unspecified Heart failure chronicity: acute Qualified Code(s): I50.9 - Heart failure, unspecified Plan to address problem: Patient presents with 3 weeks of shortness of breath and edema. Clinical evidence of heart failure. Echocardiogram shows a severe four-chamber dilated cardiomyopathy, of uncertain chronicity. Patient reports no prior cardiac history, follows up routinely at [facility]. We will continue guideline directed medical therapy including optimal diuretics. Further evaluation and management will depend on clinical course. (2) Atrial fibrillation with RVR Current Visit: Yes Status: Acute Plan to address problem: Atrial fibrillation of undetermined chronicity. Atrial fibrillation is present in the setting of a four-chamber dilated cardiomyopathy. Patient is on rate control therapy. Also started on low-dose Eliquis for long-term oral anticoagulation. Anticoagulation therapy should be managed judiciously due to her history of chronic anemia. Subjective Date of service: 04/23/21 Interval history: Patient is comfortable, no new cardiac complaints. On bus monitor, she has atrial fibrillation with well-controlled ventricular rate in the 90s. Objective Vital Signs Temp Pulse Resp BP Pulse Ox 04/23/21 08:07 97 04/23/21 07:43 97.6 F 104 H 22 121/80 100 04/23/21 07:40 89 04/23/21 03:46 97.9 F 83 18 115/66 97 04/22/21 23:44 98.1 F 96 H 19 103/72 97 04/22/21 23:38 98 H 04/22/21 23:27 97 04/22/21 19:11 98.2 F 85 18 105/62 92 04/22/21 19:08 107/68 04/22/21 18:52 107/68 04/22/21 18:21 119 H 25 H 107/68 94 04/22/21 18:11 99 H 21 107/68 90 04/22/21 18:01 101 H 20 107/68 93 04/22/21 17:51 106 H 15 107/68 87 04/22/21 17:41 109 H 19 107/68 90 04/22/21 17:31 89 20 107/68 91 04/22/21 17:21 104 H 21 107/68 91 04/22/21 17:00 119 H 22 107/68 90 04/22/21 16:30 111 H 20 95/59 92 04/22/21 16:00 98.7 F 100 H 24 98/51 92 04/22/21 15:45 97 04/22/21 15:30 117/60 87 04/22/21 15:00 18 104/62 88 04/22/21 14:30 102 H 14 108/92 85 04/22/21 14:01 109 H 21 110/86 93 04/22/21 13:41 105 H 103/62 04/22/21 13:30 20 98/66 94 04/22/21 13:01 105 H 21 92/71 91 - Physical Examination General: No Apparent Distress HEENT: Positive: PERRL Neck: Positive: neck supple Cardiac: Positive: irregularly irregular Lungs: Positive: Decreased Breath Sounds Neuro: Positive: Grossly Intact Abdomen: Positive: Soft Skin: Positive: Clear Extremities: Present: +1 Edema - Labs and Meds CBC 04/23/21 Range/Units 05:48 WBC 10.7 (4.5-11.0) K/mm3 RBC 3.82 (3.65-5.03) M/mm3 Hgb 8.2 L (10.1-14.3) gm/dl Hct 28.5 L (30.3-42.9) % Plt Count 284 (140-440) K/mm3 [place] # (Auto) 1.8 H (0.0-0.8) K/mm3 Eos # (Auto) 0.0 (0.0-0.4) K/mm3 Baso # (Auto) 0.1 (0.0-0.1) K/mm3 Comprehensive Metabolic Panel 04/23/21 Range/Units 05:48 Sodium 138 (137-145) mmol/L Potassium 4.2 (3.6-5.0) mmol/L Chloride 98.4 (98-107) mmol/L Carbon Dioxide 25 (22-30) mmol/L BUN 54 H (7-17) mg/dL Creatinine 1.9 H (0.6-1.2) mg/dL Glucose 101 H (65-100) mg/dL Calcium 8.7 (8.4-10.2) mg/dL
[2021-04-23] MEDS: DIGOXIN 0.125 MG TAB PO SCH (16:17)
--- NOTE | 2021-04-23 18:50 | Progress Note ---
Assessment and Plan Assessment and plan: Patient is a 55-year-old female past medical history of uncontrolled hypertension, anemia, acute on chronic systolic heart failure, and uterine fibroids who is being managed for A. fib with RVR in the setting of acute on chronic systolic heart failure. #Acute on chronic systolic heart failure #A. fib with RVR - Continue CHF exacerbation protocol: Telemetry, Strict I/O, monitor urine output every shift, daily weights, afterload reduction, low-sodium diet, and fluid restriction of approximately 1.5 mL/day - Supplemental oxygen: None - ProBNP on admission: 2123 - Cardiology consulted; appreciate recs - TTE (date) reveals four-chamber dilated cardiomyopathy with EF 15-20%. - Continue ASA 81 mg daily, spironolactone 25 mg daily, Isordil 1 every 8 hours, Roberta tartrate 50 mg every 8 hours, and digoxin 0.125 mg daily - Continue IV Lasix 40 mg daily. Will transition to p.o. Lasix 40 mg twice daily tomorrow. - Continue Eliquis 2.5 mg twice daily - Continue to monitor #Possible CORINNE versus OHS -Patient noted to be desaturating during sleeping. Patient will likely need outpatient follow-up with pulmonology for sleep study. #ARNULFO on CKD stage III -Creatinine 1.9 (1.4 on presentation) -Reduced diuresis in the setting of ARNULFO. CKD likely secondary to longstanding uncontrolled hypertension. -Renally dose meds and avoid nephrotoxic drugs. Continue to monitor. #Hyponatremiaresolved -Sodium 138. Continue to monitor. #Advanced care planning -Disease education conducted, care plan discussed, diagnoses discussed, prognosis discussed, and patient acknowledges understanding with care plan -Time: +30 min #Discharge planning - Patient is pending continue diuresis and improvement in creatinine. - Case management has been made aware. - Discharge is tentatively 24-72 hours Disposition Plan: Continue medical management Total Time Spent with Patient (Minutes): 45 minutes History Interval history: No acute events overnight. Hospitalist Physical - Constitutional Vitals: Temp Pulse Resp BP Pulse Ox 98.3 F 105 H 20 106/67 97 04/23/21 15:55 04/23/21 16:17 04/23/21 15:55 04/23/21 16:17 04/23/21 15:55 General appearance: Present: no acute distress, obese - EENT Eyes: Present: PERRL, EOM intact ENT: hearing intact, clear oral mucosa, dentition normal - Neck Neck: Present: supple, normal ROM - Respiratory Respiratory effort: normal - Cardiovascular Rhythm: regular Heart Sounds: Present: S1 & S2 - Extremities Extremities: no ischemia, pulses intact, pulses symmetrical, normal temperature, normal color, Full ROM Extremity abnormal: edema (1+ pitting edema in bilateral lower extremities to knees) Peripheral Pulses: within normal limits - Abdominal General gastrointestinal: soft, non-tender, non-distended, normal bowel sounds - Integumentary Integumentary: Present: clear, warm, dry - Psychiatric Psychiatric: appropriate mood/affect, intact judgment & insight, memory intact, cooperative - Neurologic Neurologic: CNII-XII intact, moves all extremities - Allied Health Allied health notes reviewed: nursing HEART Score - HEART Score Troponin: Troponin T 0.037 ng/mL (0.00-0.029) H 04/21/21 07:26 Results - Labs CBC & Chem 7: 04/23/21 05:48 04/23/21 05:48 Labs: Laboratory Last Values WBC 10.7 K/mm3 (4.5-11.0) 04/23/21 05:48 RBC 3.82 M/mm3 (3.65-5.03) 04/23/21 05:48 Hgb 8.2 gm/dl (10.1-14.3) L 04/23/21 05:48 Hct 28.5 % (30.3-42.9) L 04/23/21 05:48 MCV 75 fl (79-97) L 04/23/21 05:48 MCH 22 pg (28-32) L 04/23/21 05:48 MCHC 29 % (30-34) L 04/23/21 05:48 RDW 22.4 % (13.2-15.2) H 04/23/21 05:48 Plt Count 284 K/mm3 (140-440) 04/23/21 05:48 Lymph % (Auto) 11.2 % (13.4-35.0) L 04/22/21 04:38 [place] % (Auto) 17.3 % (0.0-7.3) H 04/23/21 05:48 Eos % (Auto) 0.3 % (0.0-4.3) 04/23/21 05:48 Baso % (Auto) 0.4 % (0.0-1.8) 04/22/21 04:38 Lymph # (Auto) 1.6 K/mm3 (1.2-5.4) 04/22/21 04:38 [place] # (Auto) 1.8 K/mm3 (0.0-0.8) H 04/23/21 05:48 Eos # (Auto) 0.0 K/mm3 (0.0-0.4) 04/23/21 05:48 Baso # (Auto) 0.1 K/mm3 (0.0-0.1) 04/23/21 05:48 Add Manual Diff Complete 04/23/21 05:48 Total Counted 100 04/23/21 05:48 Seg Neutrophils % 68.0 % (40.0-70.0) 04/23/21 05:48 Seg Neuts % (Manual) 78.0 % (40.0-70.0) H 04/23/21 05:48 Lymphocytes % (Manual) 14.0 % (13.4-35.0) 04/23/21 05:48 Monocytes % (Manual) 7.0 % (0.0-7.3) 04/23/21 05:48 Myelocytes % 1.0 % 04/23/21 05:48 Nucleated RBC % 2.0 % (0.0-0.9) H 04/23/21 05:48 Seg Neutrophils # 7.2 K/mm3 (1.8-7.7) 04/23/21 05:48 Seg Neutrophils # Man 8.3 K/mm3 (1.8-7.7) H 04/23/21 05:48 Band Neutrophils # 0.0 K/mm3 04/23/21 05:48 Lymphocytes # (Manual) 1.5 K/mm3 (1.2-5.4) 04/23/21 05:48 Abs React Lymphs (Man) 0.0 K/mm3 04/23/21 05:48 Monocytes # (Manual) 0.7 K/mm3 (0.0-0.8) 04/23/21 05:48 Eosinophils # (Manual) 0.0 K/mm3 (0.0-0.4) 04/23/21 05:48 Basophils # (Manual) 0.0 K/mm3 (0.0-0.1) 04/23/21 05:48 Metamyelocytes # 0.0 K/mm3 04/23/21 05:48 Myelocytes # 0.1 K/mm3 04/23/21 05:48 Promyelocytes # 0.0 K/mm3 04/23/21 05:48 Blast Cells # 0.0 K/mm3 04/23/21 05:48 WBC Morphology Not Reportable 04/23/21 05:48 Hypersegmented Neuts Not Reportable 04/23/21 05:48 Hyposegmented Neuts Not Reportable 04/23/21 05:48 Hypogranular Neuts Not Reportable 04/23/21 05:48 Smudge Cells Not Reportable 04/23/21 05:48 Toxic Granulation Not Reportable 04/23/21 05:48 Toxic Vacuolation Not Reportable 04/23/21 05:48 Dohle Bodies Not Reportable 04/23/21 05:48 Pelger-Huet Anomaly Not Reportable 04/23/21 05:48 Jennifer Rods Not Reportable 04/23/21 05:48 Platelet Estimate Consistent w auto 04/23/21 05:48 Clumped Platelets Not Reportable 04/23/21 05:48 Plt Clumps, EDTA Not Reportable 04/23/21 05:48 Large Platelets Not Reportable 04/23/21 05:48 Giant Platelets Not Reportable 04/23/21 05:48 Platelet Satelliting Not Reportable 04/23/21 05:48 Plt Morphology Comment Not Reportable 04/23/21 05:48 RBC Morphology Not Reportable 04/23/21 05:48 Dimorphic RBCs Not Reportable 04/23/21 05:48 Polychromasia Not Reportable 04/23/21 05:48 Hypochromasia 2+ 04/23/21 05:48 Poikilocytosis Not Reportable 04/23/21 05:48 Anisocytosis 1+ 04/23/21 05:48 Microcytosis Not Reportable 04/23/21 05:48 Macrocytosis Not Reportable 04/23/21 05:48 Spherocytes Not Reportable 04/23/21 05:48 Pappenheimer Bodies Not Reportable 04/23/21 05:48 Sickle Cells Not Reportable 04/23/21 05:48 Target Cells Not Reportable 04/23/21 05:48 Tear Drop Cells Not Reportable 04/23/21 05:48 Ovalocytes Not Reportable 04/23/21 05:48 Helmet Cells Not Reportable 04/23/21 05:48 [place] Bodies Not Reportable 04/23/21 05:48 Mobile Rings Not Reportable 04/23/21 05:48 [place] Cells Not Reportable 04/23/21 05:48 Bite Cells Not Reportable 04/23/21 05:48 Crenated Cell Not Reportable 04/23/21 05:48 Elliptocytes Not Reportable 04/23/21 05:48 Acanthocytes (Spur) Not Reportable 04/23/21 05:48 Rouleaux Not Reportable 04/23/21 05:48 Hemoglobin C Crystals Not Reportable 04/23/21 05:48 Schistocytes Not Reportable 04/23/21 05:48 Malaria parasites Not Reportable 04/23/21 05:48 Figueroa Bodies Not Reportable 04/23/21 05:48 Hem Pathologist Commnt No 04/23/21 05:48 PT 18.5 Sec. (12.2-14.9) H 04/21/21 23:07 INR 1.39 (0.87-1.13) H 04/21/21 23:07 APTT 35.3 Sec. (24.2-36.6) 04/21/21 23:07 Heparin Anti-Xa Level 1.42 U.I./ml (0.3-0.7) H 04/21/21 23:07 Sodium 138 mmol/L (137-145) 04/23/21 05:48 Potassium 4.2 mmol/L (3.6-5.0) 04/23/21 05:48 Chloride 98.4 mmol/L (98-107) 04/23/21 05:48 Carbon Dioxide 25 mmol/L (22-30) 04/23/21 05:48 Anion Gap 19 mmol/L 04/23/21 05:48 BUN 54 mg/dL (7-17) H 04/23/21 05:48 Creatinine 1.9 mg/dL (0.6-1.2) H 04/23/21 05:48 Estimated GFR 33 ml/min 04/23/21 05:48 BUN/Creatinine Ratio 28 % 04/23/21 05:48 Glucose 101 mg/dL (65-100) H 04/23/21 05:48 Calcium 8.7 mg/dL (8.4-10.2) 04/23/21 05:48 Phosphorus 4.50 mg/dL (2.5-4.5) 04/21/21 04:27 Magnesium 2.40 mg/dL (1.7-2.3) H 04/21/21 04:27 Total Bilirubin 3.90 mg/dL (0.1-1.2) H 04/18/21 22:26 AST 35 units/L (5-40) 04/18/21 22:26 ALT 47 units/L (7-56) 04/18/21 22:26 Alkaline Phosphatase 134 units/L (35-129) H 04/18/21 22:26 Troponin T 0.037 ng/mL (0.00-0.029) H 04/21/21 07:26 NT-Pro-B Natriuret Pep 2124 pg/mL (0-900) H 04/18/21 22:26 Total Protein 8.0 g/dL (6.3-8.2) 04/18/21 22:26 Albumin 3.4 g/dL (3.9-5) L 04/18/21 22:26 Albumin/Globulin Ratio 0.7 % 04/18/21 22:26 Triglycerides 76 mg/dL (2-149) 04/18/21 22:26 Cholesterol 76 mg/dL (50-199) 04/18/21 22:26 LDL Cholesterol Direct 42 mg/dL (50-130) L 04/18/21 22:26 HDL Cholesterol 25 mg/dL (40-59) L 04/18/21 22:26 Cholesterol/HDL Ratio 3.04 % 04/18/21 22:26 TSH 2.420 mlU/mL (0.270-4.200) 04/18/21 22:26 Blood Type O NEGATIVE 04/21/21 16:15 Antibody Screen Negative 04/21/21 16:15 Crossmatch See Detail 04/21/21 16:15 Microbiology: Microbiology 04/22/21 10:48 Peripheral/Venous Blood Culture - Preliminary NO GROWTH AFTER 24 HOURS 04/22/21 10:48 Peripheral/Venous Blood Culture - Preliminary NO GROWTH AFTER 24 HOURS Arteaga/IV: Voiding Method Indwelling Catheter Active Medications - Current Medications Current Medications: Generic Name Dose Route Start Last Admin Trade Name Freq PRN Reason Stop Dose Admin Acetaminophen 650 mg 04/19/21 01:13 04/20/21 15:35 Acetaminophen 325 Mg Tab PO 650 mg Q6H PRN Administration Pain MILD(1-3)/Fever >100.5/WALTER Amiodarone HCl 200 mg 04/21/21 15:00 04/23/21 09:10 Amiodarone 200 Mg Tab PO 200 mg BID SHELLY Administration Apixaban 2.5 mg 04/21/21 15:00 04/23/21 09:10 Apixaban 2.5 Mg Tab PO 2.5 mg Q12HR SHELLY Administration Protocol Aspirin 81 mg 04/20/21 15:00 04/23/21 09:10 Aspirin Ec 81 Mg Tab PO 81 mg QDAY SHELLY Administration Digoxin 0.125 mg 04/21/21 17:00 04/23/21 16:17 Digoxin 0.125 Mg Tab PO 0.125 mg DAILY@1700 SHELLY Administration Famotidine 10 mg 04/20/21 22:00 04/23/21 09:10 Famotidine 10 Mg Tab PO 10 mg BID SHELLY Administration Furosemide 40 mg 04/23/21 10:00 04/23/21 09:10 Furosemide 40 Mg/4 Ml Inj IV 40 mg QDAY SHELLY Administration Isosorbide Dinitrate/Hydralazine 1 each 04/20/21 15:00 04/23/21 16:17 Isosorb Dinit/Hydralazine 20-37.5mg Tab PO Not Given Q8HR SHELLY Magnesium Hydroxide 30 ml 04/19/21 01:13 Magnesium Hydroxide (Mom) Oral Liqd Udc PO Q4H PRN Constipation Metoprolol Tartrate 2.5 mg 04/20/21 13:52 Metoprolol Tartrate 5 Mg/5 Ml Inj IV Q6HR PRN HR>130 Metoprolol Tartrate 50 mg 04/21/21 16:00 04/23/21 16:17 Metoprolol Tartrate 50 Mg Tab PO 50 mg Q6H SHELLY Administration Morphine Sulfate 2 mg 04/19/21 01:13 Morphine 2 Mg/1 Ml Inj IV Q5MIN PRN Chest Pain unrelieved by NTG Nitroglycerin 0.4 mg 04/19/21 01:13 Nitroglycerin 0.4 Mg Tab Subl SL .Q5MIN PRN Chest Pain Ondansetron HCl 4 mg 04/20/21 17:00 04/20/21 17:34 Ondansetron 4 Mg/2 Ml Inj IV 4 mg Q8HR PRN Administration Nausea And Vomiting Oxycodone HCl 5 mg 04/20/21 13:24 04/22/21 22:38 Oxycodone 5 Mg Tab PO 5 mg Q6H PRN Administration Pain, Moderate (4-6) Senna 17.2 mg 04/20/21 22:00 04/22/21 22:39 Sennosides 8.6 Mg Tab PO 8.6 mg QHS SHELLY Administration Simethicone 80 mg 04/20/21 18:00 04/21/21 21:30 Simethicone 80 Mg Chew Tab PO 80 mg Q6H PRN Administration Gas pain Sodium Chloride 10 ml 04/19/21 10:00 04/23/21 09:11 Sodium Chloride 0.9% 10 Ml Flush Syringe IV 10 ml BID SHELLY Administration Sodium Chloride 10 ml 04/19/21 01:13 Sodium Chloride 0.9% 10 Ml Flush Syringe IV PRN PRN LINE FLUSH Spironolactone 25 mg 04/21/21 10:00 04/23/21 09:10 Spironolactone 25 Mg Tab PO 25 mg QDAY SHELLY Administration Nutrition/Malnutrition Assess - Dietary Evaluation Nutrition/Malnutrition Findings: Nutrition Notes Start: 04/19/21 09:36 Freq: Status: Active Protocol: Document 04/23/21 15:11 [facility] (Rec: 04/23/21 15:14 [facility] [id number]) Nutrition Notes Initial or Follow up Brief Note Subjective/Other Information Visited pt at bedside. She is very receptive to diet education. She says she cut back on salt and is working on decreasing intake of processed foods. Reports fair appetite sec to dislike of foods served here. #1 Nutrition Diagnosis Food and nutrition-related knowledge deficit Etiology limited exposure to diet education As Evidenced by Signs and Symptoms pt admitted with CHF exacerbation Nutrition Intervention Teaching Recipient Patient Learning Readiness Good Teaching Methods Discussion,Handout Response to Teaching Verbalize understanding Education Handouts Provided Heart Failure Nutrition Therapy Barriers to Learning No Barriers RD phone number provided Yes Patient aware of follow up options Yes Goal #1 Adherence to low sodium, heart -healthy diet Revisit per MD consult or patient Sign Off request:
[2021-04-23] MEDS: METOPROLOL TARTRATE 5 MG/5 ML INJ IV PRN ×2 (21:47→21:56)
[2021-04-23] MEDS: SENNOSIDES 8.6 MG TAB PO SCH (21:50)
[2021-04-24] MEDS: METOPROLOL TARTRATE 50 MG TAB PO SCH ×3 (04:55→16:19)
[2021-04-24] MEDS: ISOSORB DINIT/HYDRALAZINE 20-37.5MG TAB PO SCH ×2 (05:31→16:20)
[2021-04-24 05:50] LABS: Basophils # (Auto) 0.1 K/mm3 (0.0-0.1); Basophils % (Auto) 0.5 % (0.0-1.8); Eosinophils # (Auto) 0.1 K/mm3 (0.0-0.4); Eosinophils % (Auto) 0.7 % (0.0-4.3); Lymphocytes # (Auto) 1.3 K/mm3 (1.2-5.4); Lymphocytes % (Auto) 12.6 % (13.4-35.0); Mean Corpuscular HGB Conc 29 % (30-34); Mean Corpuscular Volume 74 fl (79-97); Monocytes # (Auto) 1.5 K/mm3 (0.0-0.8); Platelet Count 294 K/mm3 (140-440)
[2021-04-24 05:53] LABS: Hematocrit 28.8 % (30.3-42.9); Hemoglobin 8.2 gm/dl (10.1-14.3); Red Cell Distribution Width 22.9 % (13.2-15.2)
[2021-04-24 06:13] LABS: Calcium 9.3 mg/dL (8.4-10.2)
[2021-04-24] MEDS: APIXABAN 2.5 MG TAB PO SCH (09:00)
[2021-04-24] MEDS: FAMOTIDINE 10 MG TAB PO SCH (09:00)
[2021-04-24] MEDS: AMIODARONE 200 MG TAB PO SCH (09:00)
[2021-04-24] MEDS: SPIRONOLACTONE 25 MG TAB PO SCH (09:00)
[2021-04-24] MEDS: FUROSEMIDE 40 MG/4 ML INJ IV SCH (09:01)
[2021-04-24] MEDS: ASPIRIN EC 81 MG TAB PO SCH (09:01)
--- NOTE | 2021-04-24 09:19 | Discharge Summary ---
Providers - Providers Date of Admission: 04/18/21 23:57 Date of discharge: 04/24/21 Attending physician: JENS GOMEZ MD 04/19/21 00:36 Consult to Cardiology [CONS] Routine Consulting Provider: EDWARD DOUGLAS Reason For Exam: A-fib with RVR (new onset), New onset CHF 04/19/21 01:13 Consult to Dietitian/Nutrition [CONS] Routine Physician Instructions: Reason For Exam: Reason for Consult: Diet education Primary care physician: CLIENT APPLICATION SUPPORT ENGINEER Hospitalization Reason for admission: Acute on chronic systolic heart failure Condition: Serious Pertinent studies: Reviewed. Procedures: None. Hospital course: Patient is a 55-year-old female past medical history of uncontrolled hypertension, anemia, acute on chronic systolic heart failure, and uterine fibroids who is being managed for A. fib with RVR in the setting of acute on chronic systolic heart failure. Patient underwent TTE that revealed four- chamber dilated cardiomyopathy with a EF 15-20%. Cardiology was consulted and medical management was initiated. The patient underwent IV diuresis for clinical improvement. The patient was initially started on an amiodarone drip and transitioned to p.o. amiodarone; however, the patient's atrial fibrillation with RVR persisted. As a result, the patient was also started on digoxin 0.125 mg daily. The patient was also started on Eliquis 2.5 mg twice daily for stroke prevention in the setting of A. fib. The patient was counseled about weight loss, incorporating exercise, dietary changes, and medication compliance. The patient expresses understanding. Disposition: HOME / SELF CARE / HOMELESS Final Discharge Diagnosis (Prints w/discharge instructions): Acute on chronic systolic heart failure, atrial fibrillation with RVR, CORINNE versus OHS, ARNULFO on CKD stage III, hyponatremia, obesity Time spent for discharge: 45 minutes Core Measure Documentation - Palliative Care Palliative Care/ Comfort Measures: Not Applicable - Core Measures Any of the following diagnoses?: none - Heart Failure Discharge Requirements JAMIL/ARB for LVSD if EF <40%: No Reason for no JAMIL/ARB: Renal impairment Beta kike at discharge: Yes Exam - Constitutional Vitals: Temp Pulse Resp BP Pulse Ox 97.5 F L 80 18 109/73 98 04/24/21 07:39 04/24/21 08:59 04/24/21 07:39 04/24/21 08:59 04/24/21 07:39 General appearance: Present: no acute distress, well-nourished, obese - EENT Eyes: Present: PERRL, EOM intact ENT: hearing intact, clear oral mucosa, dentition normal - Neck Neck: Present: supple, normal ROM - Respiratory Respiratory effort: normal Respiratory: bilateral: CTA - Cardiovascular Rhythm: regular Heart Sounds: Present: S1 & S2 - Extremities Extremities: no ischemia, pulses intact, pulses symmetrical, normal temperature, normal color, Full ROM Extremity abnormal: edema (1+ pitting edema of bilateral lower extremities to mid fernandez) Peripheral Pulses: within normal limits - Abdominal General gastrointestinal: Present: soft, non-tender, non-distended, normal bowel sounds Female genitourinary: Present: deferred - Rectal Rectal Exam: deferred - Integumentary Integumentary: Present: clear, warm, dry - Musculoskeletal Musculoskeletal: strength equal bilaterally - Psychiatric Psychiatric: appropriate mood/affect, intact judgment & insight, memory intact, cooperative - Neurologic Neurologic: CNII-XII intact, moves all extremities - Allied Health Allied health notes reviewed: nursing Plan Activity: no restrictions Diet: low salt Special Instructions: restrict fluid intake to (1.5L/day), record daily weights Care Plan Goals: Patient is medically cleared for discharge. Assessment: The patient was admitted for management of acute on chronic systolic heart failure in the setting of atrial fibrillation with RVR. Patient was where she required amiodarone drip that was eventually transitionedtransadmitted to the ICU to p.o. amiodarone; however, the patient required the addition of digoxin 0.125 mg daily for further control of her heart rate. The patient was diuresed and has shown clinical improvement. The patient was started on Eliquis 2.5 mg twice daily for stroke prevention. Patient was counseled on the importance of medication compliance, weight loss, incorporating exercise, and dietary changes. The patient will follow up with cardiology in clinic in approximately 7-10 days. The patient will follow up with her PCP in approximately 7 days. Patient is cleared for medical discharge. Follow up with: TRIPP WALLIS MD [Primary Care Provider] - 3-5 Days AJITH RICE MD [Staff Physician] - 7 Days (To establish PCP care after acute on chronic heart failure exacerbation in the setting of A. fib with RVR.) Prescriptions: Sennosides Tab [Senokot] 17.2 mg PO QHS #30 tablet Spironolactone [Aldactone] 25 mg PO QDAY #30 tablet Isosorb Dinit/Hydralazine [Bidil 20/37.5MG] 1 each PO Q8HR #90 tablet Amiodarone [Cordarone 200 MG TAB] 200 mg PO BID #60 tablet Apixaban [Eliquis] 2.5 mg PO Q12HR #60 tablet Aspirin EC [Halfprin EC] 81 mg PO QDAY #30 tablet Digoxin [Lanoxin] 0.125 mg PO DAILY@1700 #30 tablet Metoprolol [Lopressor TAB] 75 mg PO Q8H #90 tablet Famotidine [Pepcid] 10 mg PO BID #60 tablet
--- NOTE | 2021-04-24 13:17 | Progress Note ---
Assessment and Plan - Patient Problems (1) CHF (congestive heart failure) Current Visit: Yes Status: Acute Qualifiers: Heart failure type: unspecified Heart failure chronicity: acute Qualified Code(s): I50.9 - Heart failure, unspecified Plan to address problem: Patient presented with 3 weeks of shortness of breath and edema. Clinical evidence of heart failure. Echocardiogram shows a severe four-chamber dilated cardiomyopathy, of uncertain chronicity. We will continue guideline directed medical therapy including optimal diuretics. Stable for cardiac discharge and outpatient cardiac follow-up in 7 days. (2) Atrial fibrillation with RVR Current Visit: Yes Status: Acute Plan to address problem: Atrial fibrillation of undetermined chronicity. Atrial fibrillation is present in the setting of a four-chamber dilated cardiomyopathy. Patient is on rate control therapy. Also started on low-dose Eliquis for long-term oral anticoagulation. Anticoagulation therapy should be managed judiciously due to her history of chronic anemia. Subjective Date of service: 04/24/21 Interval history: Patient is comfortable, no new cardiac complaints. Objective Vital Signs Temp Pulse Pulse Pulse Resp BP Pulse Ox 04/24/21 10:00 80 98 04/24/21 08:59 80 109/73 04/24/21 07:39 97.5 F L 82 18 79/44 98 04/24/21 07:15 97 H 04/24/21 05:31 99 H 114/50 04/24/21 05:11 98.0 F 74 20 114/50 0 L 04/24/21 04:55 99 H 114/50 04/23/21 22:01 99 H 112/48 04/23/21 22:00 88 97 04/23/21 21:46 99 H 112/48 04/23/21 19:16 98.3 F 99 H 18 112/48 100 04/23/21 16:17 105 H 106/67 04/23/21 15:55 98.3 F 105 H 20 106/67 97 - Physical Examination General: No Apparent Distress HEENT: Positive: PERRL Neck: Positive: neck supple Cardiac: Positive: irregularly irregular Lungs: Positive: clear to auscultation Neuro: Positive: Grossly Intact Abdomen: Positive: Soft Skin: Positive: Clear Extremities: Present: +1 Edema - Labs and Meds CBC 04/24/21 Range/Units 04:26 WBC 10.0 (4.5-11.0) K/mm3 RBC 3.90 (3.65-5.03) M/mm3 Hgb 8.2 L (10.1-14.3) gm/dl Hct 28.8 L (30.3-42.9) % Plt Count 294 (140-440) K/mm3 Lymph # (Auto) 1.3 (1.2-5.4) K/mm3 [place] # (Auto) 1.5 H (0.0-0.8) K/mm3 Eos # (Auto) 0.1 (0.0-0.4) K/mm3 Baso # (Auto) 0.1 (0.0-0.1) K/mm3 Comprehensive Metabolic Panel 04/24/21 Range/Units 04:26 Sodium 137 (137-145) mmol/L Potassium 3.8 (3.6-5.0) mmol/L Chloride 97.7 L (98-107) mmol/L Carbon Dioxide 25 (22-30) mmol/L BUN 48 H (7-17) mg/dL Creatinine 1.5 H (0.6-1.2) mg/dL Glucose 89 (65-100) mg/dL Calcium 9.3 (8.4-10.2) mg/dL
[2021-04-24] MEDS: DIGOXIN 0.125 MG TAB PO SCH (16:19)
[2021-04-24 16:21] VITALS: BP 110/74
== END 2021-04-24 17:51 | disposition home or self-care (01) | DRG 291 ==
LOC: ED 18:47 → IMCU 23:57 → CC1 04-20 00:16 → 4A 04-22 18:40
PROVIDERS: ADMIT Internal Medicine Geriatric Medicine; ATTEND Student in an Organized Health Care Education/Training Program
PROC: 30233N1 Transfusion of Nonautologous Red Blood Cells into Peripheral Vein, Percutaneous Approach (ICD-10-PCS; principal; 2021-04-21)
DX: I13.0 Hypertensive heart and chronic kidney disease with heart failure and stage 1 through stage 4 chronic kidney disease, or unspecified chronic kidney disease (principal); I50.23 Acute on chronic systolic (congestive) heart failure; N17.9 Acute kidney failure, unspecified; I48.20 Chronic atrial fibrillation, unspecified; E87.1 Hypo-osmolality and hyponatremia; Z68.42 Body mass index [BMI] 45.0-49.9, adult; D64.9 Anemia, unspecified; R77.8 Other specified abnormalities of plasma proteins; I48.91 Unspecified atrial fibrillation; E66.9 Obesity, unspecified; N18.30 Chronic kidney disease, stage 3 unspecified
CPT/HCPCS: 36415; 71045; 71046; 80048; 80053; 80061; 82565; 83735; 83880; 84100; 84443; 84484; 85007; 85025; 85027; 85520; 85610; 85730; 86850; 86900; 86901; 86920; 87040; 93005; 93306; 99291; G0378; J3490; J7060; J9280; J0282; J1160; J1644; J1940; J2270; J2405; J7040; P9016

== ENCOUNTER 2021-05-21 16:41 | Emergency (ER) | payer SELFPAY ==
[2021-05-21] MEDS ORDERED: FUROSEMIDE 40 MG/4 ML INJ IV ONE (17:46)
--- NOTE | 2021-05-21 18:04 | Emergency Department Report ---
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 Patient was admitted here April 2021 and diagnosed with all of the above diagnoses after inpatient cardiac work-up. Prior to that patient was not on any medications. Since being discharged she is taking the medications as prescribed with the exception of Bidil and reports although her shortness of breath, orthopnea, and PND have improved her lower extremity edema has not. Patient states she has been cutting back on her salt and fluid intake. The fluid retention in her abdomen has improved but the persistent fluid retention in her legs make it difficult to ambulate. Patient has not been able to fill the Bidil due to cost of $300. She also expresses concern because she is about to run out of her Eliquis and cannot afford the $500 refill. She has her first post admission cardiology follow-up visit scheduled for next week May 25. As per medical record patient was evaluated by [facility] compound specialist - Related Data Previous Rx's Medication Instructions Recorded Last Taken Type Amiodarone [Cordarone 200 MG TAB] 200 mg PO BID #60 tablet 04/24/21 Unknown Rx Aspirin EC [Halfprin EC] 81 mg PO QDAY #30 tablet 04/24/21 Unknown Rx Digoxin [Lanoxin] 0.125 mg PO DAILY@1700 #30 tablet 04/24/21 Unknown Rx Famotidine [Pepcid] 10 mg PO BID #60 tablet 04/24/21 Unknown Rx Furosemide [Lasix TAB] 40 mg PO BID #60 tablet 04/24/21 Unknown Rx Isosorb Dinit/Hydralazine [Bidil 1 each PO Q8HR #90 tablet 04/24/21 Unknown Rx 20/37.5MG] Metoprolol [Lopressor TAB] 75 mg PO Q8H #90 tablet 04/24/21 Unknown Rx Sennosides Tab [Senokot] 17.2 mg PO QHS #30 tablet 04/24/21 Unknown Rx Spironolactone [Aldactone] 25 mg PO QDAY #30 tablet 04/24/21 Unknown Rx Apixaban [Eliquis] 2.5 mg PO Q12HR #6 tablet 05/21/21 Unknown Rx Isosorbide Dinitrate [Isordil] 20 mg PO TID #90 tablet 05/21/21 Unknown Rx hydrALAZINE [Apresoline TAB] 25 mg PO Q8HR #90 tab 05/21/21 Unknown Rx Allergies Allergy/AdvReac Type Severity Reaction Status Date / Time No Known Allergies Allergy Verified 04/23/21 12:03 ED Review of Systems ROS: Stated complaint: FLUID RETENTION Other details as noted in HPI Comment: All other systems reviewed and negative ED Past Medical Hx - Past Medical History Previous Medical History?: Yes Hx Hypertension: Yes Hx Congestive Heart Failure: Yes (EF 15-20%) Hx Diabetes: No Hx Asthma: No Hx COPD: No Additional medical history: Uterine fibroids. Anemia. afib - Surgical History Past Surgical History?: No - Social History Smoking Status: Never Smoker - Medications Home Medications: Home Medications Medication Instructions Recorded Confirmed Last Taken Type Amiodarone [Cordarone 200 MG TAB] 200 mg PO BID #60 tablet 04/24/21 Unknown Rx Aspirin EC [Halfprin EC] 81 mg PO QDAY #30 tablet 04/24/21 Unknown Rx Digoxin [Lanoxin] 0.125 mg PO DAILY@1700 #30 tablet 04/24/21 Unknown Rx Famotidine [Pepcid] 10 mg PO BID #60 tablet 04/24/21 Unknown Rx Furosemide [Lasix TAB] 40 mg PO BID #60 tablet 04/24/21 Unknown Rx Isosorb Dinit/Hydralazine [Bidil 1 each PO Q8HR #90 tablet 04/24/21 Unknown Rx 20/37.5MG] Metoprolol [Lopressor TAB] 75 mg PO Q8H #90 tablet 04/24/21 Unknown Rx Sennosides Tab [Senokot] 17.2 mg PO QHS #30 tablet 04/24/21 Unknown Rx Spironolactone [Aldactone] 25 mg PO QDAY #30 tablet 04/24/21 Unknown Rx Apixaban [Eliquis] 2.5 mg PO Q12HR #6 tablet 05/21/21 Unknown Rx Isosorbide Dinitrate [Isordil] 20 mg PO TID #90 tablet 05/21/21 Unknown Rx hydrALAZINE [Apresoline TAB] 25 mg PO Q8HR #90 tab 05/21/21 Unknown Rx ED Physical Exam - General Limitations: No Limitations - Other Other exam information: General: No acute distress Head: Atraumatic Eyes: normal appearance ENT: Moist mucous membranes Neck: Normal appearance, no midline tenderness Chest: Clear to auscultation bilaterally CV: Irregular rhythm Abdomen: Soft, normal bowel sounds, nontender, nondistended, no rebound or guarding Back: Normal inspection Extremity: 3+ bilateral lower extremity edema thighs down to feet. Neuro: Alert O x 3, no facial asymmetry, speech clear, no gross motor sensory deficit Psych: Appropriate behavior Skin: No rash ED Course Vital Signs 05/21/21 16:47 Temperature 97 F L Pulse Rate 96 H Respiratory 16 Rate Blood Pressure 124/87 [Left] O2 Sat by Pulse 97 Oximetry - Reevaluation(s) Reevaluation #1: 05/21/21 20:56 Patient did have diuresis while in the ED and does report feeling better - Consultations Consultation #1: 05/21/21 20:[address] Ryan. Patient states that patient will walk into their [place] office on Monday to receive samples of Eliquis and recommends to break up the BiDil and write for isosorbide 20 mg and hydralazine 25 mg ED Medical Decision Making - Lab Data Result diagrams: 05/21/21 17:52 05/21/21 17:52 Lab Results 05/21/21 05/21/21 Range/Units 17:52 17:52 WBC 6.8 (4.5-11.0) K/mm3 RBC 4.16 (3.65-5.03) M/mm3 Hgb 8.5 L (10.1-14.3) gm/dl Hct 30.0 L (30.3-42.9) % MCV 72 L (79-97) fl MCH 20 L (28-32) pg MCHC 28 L (30-34) % RDW 23.2 H (13.2-15.2) % Plt Count 216 (140-440) K/mm3 Lymph % (Auto) 20.3 (13.4-35.0) % [place] % (Auto) 11.8 H (0.0-7.3) % Eos % (Auto) 1.4 (0.0-4.3) % Baso % (Auto) 1.3 (0.0-1.8) % Lymph # (Auto) 1.4 (1.2-5.4) K/mm3 [place] # (Auto) 0.8 (0.0-0.8) K/mm3 Eos # (Auto) 0.1 (0.0-0.4) K/mm3 Baso # (Auto) 0.1 (0.0-0.1) K/mm3 Seg Neutrophils % 65.2 (40.0-70.0) % Seg Neutrophils # 4.4 (1.8-7.7) K/mm3 Sodium 143 (137-145) mmol/L Potassium 4.1 (3.6-5.0) mmol/L Chloride 103.5 (98-107) mmol/L Carbon Dioxide 28 (22-30) mmol/L Anion Gap 16 mmol/L BUN 13 (7-17) mg/dL Creatinine 1.2 (0.6-1.2) mg/dL Estimated GFR 57 ml/min BUN/Creatinine Ratio 11 % Glucose 111 H (65-100) mg/dL Calcium 8.9 (8.4-10.2) mg/dL Total Bilirubin 3.40 H (0.1-1.2) mg/dL AST 13 (5-40) units/L ALT 9 (7-56) units/L Alkaline Phosphatase 92 (35-129) units/L Troponin T < 0.010 (0.00-0.029) ng/mL NT-Pro-B Natriuret Pep 3619 H (0-900) pg/mL Total Protein 8.0 (6.3-8.2) g/dL Albumin 3.2 L (3.9-5) g/dL Albumin/Globulin Ratio 0.7 % - EKG Data -: EKG Interpreted by Me (Atrial fibrillation) EKG shows normal: ST-T waves (No STEMI) Rate: normal - EKG Data When compared to previous EKG there are: no significant change - Radiology Data Radiology results: report reviewed CHEST 2 VIEWS INDICATION / CLINICAL INFORMATION: Chest Pain. COMPARISON: 04/22/2021 FINDINGS: SUPPORT DEVICES: None. HEART / MEDIASTINUM: There is prominence the cardiac silhouette. LUNGS / PLEURA: Pulmonary opacities have improved in the interval but have not entirely resolved.. No pneumothorax. ADDITIONAL FINDINGS: No significant additional findings. IMPRESSION: 1. There has been interval improvement in bilateral pulmonary opacities. - Medical Decision Making 55-year-old female presents to the hospital with persistent leg edema that is unchanged since discharge from the hospital in April. Patient does report that her respiratory symptoms have improved. X-ray reveals improvement in infiltrate/edema. Patient does not have hypoxia. Vital signs stable. Patient feels symptomatically better after receiving IV Lasix. After discussing with Dr. Ryan on-call manufacturing area manager for [facility] patient should go to the office on Monday to receive additional samples of Eliquis and her BP meds were adjusted to make them more affordable. 6 additional tablets of Eliquis were prescribed to ensure patient will have enough to make it through the weekend until she can be seen by cardiology on Monday Critical Care Time: No Critical care attestation.: If time is entered above; I have spent that time in minutes in the direct care of this critically ill patient, excluding procedure time. ED Disposition Clinical Impression: Chronic CHF (congestive heart failure), Leg edema, Chronic atrial fibrillation, Chronic anemia, Chronic anticoagulation Disposition: HOME / SELF CARE / HOMELESS Is pt being admited?: No Does the pt Need Aspirin: No Condition: Stable Instructions: Heart Failure, Diagnosis, [id number], Preventing Atrial Fibrillation-Related Stroke, Bleeding Precautions When on Anticoagulant Therapy, Adult Additional Instructions: Take the medication as prescribed. Follow-up with the manufacturing area manager on Monday. You may walk into the [place] office and they should be able to provide you some samples of Eliquis. You have been provided a prescription for 2 medications to replace your current Bidil med. This she will make the medication more affordable. Continue to monitor your fluid and salt intake. Return if symptoms worsen as indicated by your discharge instructions Prescriptions: hydrALAZINE [Apresoline TAB] 25 mg PO Q8HR #90 tab Apixaban [Eliquis] 2.5 mg PO Q12HR #6 tablet Isosorbide Dinitrate [Isordil] 20 mg PO TID #90 tablet Referrals: PRIMARY CARE, [Primary Care Provider] - 3-5 Days RAPHAEL RYAN MD [Staff Physician] - [facility] - [facility]/24/[facility] (Go to the [facility] office in [place] to obtain samples of Eliquis and see the manufacturing area manager) Forms: Work/School Release Form(ED) Time of Disposition: 21:07
--- NOTE | 2021-05-21 18:22 | XRay Report ---
CHEST 2 VIEWS INDICATION / CLINICAL INFORMATION: Chest Pain. COMPARISON: 04/22/2021 FINDINGS: SUPPORT DEVICES: None. HEART / MEDIASTINUM: There is prominence the cardiac silhouette. LUNGS / PLEURA: Pulmonary opacities have improved in the interval but have not entirely resolved.. No pneumothorax. ADDITIONAL FINDINGS: No significant additional findings. IMPRESSION: 1. There has been interval improvement in bilateral pulmonary opacities. Signer Name: Da Méndez MD Signed: 05/21/2021 6:18 PM Workstation Name: [id number]
[2021-05-21 18:39] LABS: Basophils # (Auto) 0.1 K/mm3 (0.0-0.1); Basophils % (Auto) 1.3 % (0.0-1.8); Eosinophils # (Auto) 0.1 K/mm3 (0.0-0.4); Eosinophils % (Auto) 1.4 % (0.0-4.3); Lymphocytes # (Auto) 1.4 K/mm3 (1.2-5.4); Lymphocytes % (Auto) 20.3 % (13.4-35.0); Mean Corpuscular HGB Conc 28 % (30-34); Mean Corpuscular Volume 72 fl (79-97); Monocytes # (Auto) 0.8 K/mm3 (0.0-0.8); Monocytes % (Auto) 11.8 % (0.0-7.3); Platelet Count 216 K/mm3 (140-440); Red Blood Count 4.16 M/mm3 (3.65-5.03)
[2021-05-21 18:46] LABS: Alanine Aminotransferase 9 units/L (7-56); Albumin 3.2 g/dL (3.9-5); BUN/Creatinine Ratio 11; Blood Urea Nitrogen 13 mg/dL (7-17); Calcium 8.9 mg/dL (8.4-10.2); Hemolysis Index 0
[2021-05-21 18:54] LABS: Hemoglobin 8.5 gm/dl (10.1-14.3); Red Cell Distribution Width 23.2 % (13.2-15.2)
[2021-05-21 22:52] VITALS: BP 128/70
--- NOTE | 2021-05-25 09:16 | Electrocardiograph Report ---
[facility] Test Date: 2021-05-21 Test Time: 19:47:15 Pat Name: MAYRA PERALTA Department: Room: Gender: F Electrician: HANK : 1965 Requested By: KEN KOVACS Order Number: [id number] Reading MD: Julio Pelaez Measurements Intervals [place] Rate: 89 P: MA: QRS: -35 QRSD: 101 T: 151 QT: 341 QTc: 416 Interpretive Statements Atrial fibrillation Inferior infarct, old Nonspecific T abnormalities, lateral leads Compared to ECG 04/20/2021 17:16:00 No significant changes Electronically Signed On 05-25-2021 9:16:05 EST by Julio Pelaez
== END 2021-05-21 22:50 | disposition home or self-care (01) ==
LOC: ED 16:41
DX: I50.9 Heart failure, unspecified (principal); R22.43 Localized swelling, mass and lump, lower limb, bilateral; I11.0 Hypertensive heart disease with heart failure; I48.20 Chronic atrial fibrillation, unspecified; D64.9 Anemia, unspecified; Z79.01 Long term (current) use of anticoagulants
CPT/HCPCS: 36415; 71046; 80053; 83880; 84484; 85025; 93005; 96374; 99284; J1940